=== PATIENT | female | born 1940 | race Hispanic/Latino ===

== ENCOUNTER 2017-01-22 12:51 | Observation (INO) | payer MEDICARE ==
[2017-01-22 12:51] VITALS: PULSE 71
--- NOTE | 2017-01-22 13:12 | ED PDOC ---
Arrival/HPI - General Chief Complaint: Syncope Time Seen by Provider: 01/22/17 12:54 Historian: Patient - History of Present Illness Narrative History of Present Illness (Text): 01/22/17 13:00 A 76 year old female with a past medial history of congestive heart failure, hypertension, and on Coumadin, presents to the Emergency department brought via EMS after a syncopal episode at her [employer]. The patient states that while she was standing she felt dizzy and had to sit down, and "blacked out" She notes that she recalls being surrounded by people at [employer]. The patient stats that she is asymptomatic at the moment. The patient denies headache, fevers, chills, chest pain, abdominal pain shortness of breath, nausea, vomiting, diarrhea, or any other complaint. PMD: Dr. Dejah Lieberman 01/22/17 17:00 Time/Duration: Prior to Arrival Symptom Onset: Sudden Symptom Course: Improving Activities at Onset: Rest, Light Context: Other ([employer]) Past Medical History - Provider Review Nursing Documentation Reviewed: Yes - Infectious Disease Hx of Infectious Diseases: None - Tetanus Immunization Tetanus Immunization: Unknown - Cardiac Hx Cardiac Disorders: Yes (CHF) Hx Cardiac Arrhythmia: Yes (AFIB) Hx Congestive Heart Failure: Yes Hx Internal Defibrillator: Yes (2 years ago) Hx Pacemaker: Yes (2 years ago) - Pulmonary Hx Respiratory Disorders: Yes Hx Pneumonia: Yes - Neurological Hx Neurological Disorder: No - HEENT Hx HEENT Disorder: No - Renal Hx Renal Disorder: No - Endocrine/Metabolic Hx Endocrine Disorders: No - Hematological/Oncological Hx Blood Disorders: No Hx Anemia: Yes (HAD BLOOD TRANFUSION) - Integumentary Hx Dermatological Disorder: No - Musculoskeletal/Rheumatological Hx Musculoskeletal Disorders: No Hx Falls: No - Gastrointestinal Hx Gastrointestinal Disorders: No - Genitourinary/Gynecological Hx Genitourinary Disorders: No - Psychiatric Hx Psychophysiologic Disorder: No Hx Depression: No Hx Emotional Abuse: No Hx Physical Abuse: No Hx Substance Use: No - Surgical History Hx Hysterectomy: Yes (AT AGE 38 YEARS AGO) Other/Comment: HYSTERECTOMY.PACEMAKER,DEFIBRILLATOR - Anesthesia Hx Anesthesia: Yes Hx Anesthesia Reactions: No Hx Malignant Hyperthermia: No - Suicidal Assessment Feels Threatened In Home Enviroment: No Family/Social History - Physician Review Nursing Documentation Reviewed: Yes Family/Social History: No Known Family HX Smoking Status: Never Smoked Hx Alcohol Use: No Hx Substance Use: No Hx Substance Use Treatment: No Allergies/Home Meds Allergies/Adverse Reactions: Allergies iodine Allergy (Verified 07/23/15 20:14) RASH levofloxacin Allergy (Verified 07/23/15 20:14) RASH sulfur [From Sulfur-8] Allergy (Verified 07/23/15 20:14) RASH Home Medications: Home Meds Medication Instructions Recorded Confirmed Digoxin 0.125 mg PO DAILY 04/02/12 01/22/17 Furosemide 40 mg PO QAM 04/02/12 01/22/17 Sotalol Hydrochloride [Sotalol] 80 mg PO BID 04/02/12 01/22/17 Furosemide [Lasix] 40 mg PO HS 02/03/14 01/22/17 Aspirin [Adult Low Dose Aspirin EC] 120 mg PO DAILY 07/23/15 01/22/17 Review of Systems - Physician Review All systems were reviewed & negative as marked: Yes - Review of Systems Constitutional: absent: Fevers, Night Sweats Respiratory: absent: SOB Cardiovascular: absent: Chest Pain Gastrointestinal: absent: Abdominal Pain, Diarrhea, Nausea, Vomiting Neurological: Dizziness, Other (Syncopal Episode). absent: Headache Physical Exam Vital Signs Temp Pulse Resp BP Pulse Ox 01/22/17 16:40 70 18 96/60 L 99 01/22/17 15:07 70 15 91/56 L 100 01/22/17 15:03 97.6 F 70 18 85/46 L 01/22/17 13:58 97.6 F 70 85/46 L 100 01/22/17 12:55 70 18 92/45 L 99 Appearance: Positive for: Well-Appearing, Non-Toxic, Comfortable Pain Distress: None Mental Status: Positive for: Alert and Oriented X 3 - Systems Exam Head: Present: Atraumatic, Normocephalic Pupils: Present: PERRL Extroacular Muscles: Present: EOMI Conjunctiva: Present: Normal Mouth: Present: Moist Mucous Membranes Neck: Present: Normal Range of Motion Respiratory/Chest: Present: Clear to Auscultation, Good Air Exchange. No: Respiratory Distress, Accessory Muscle Use Cardiovascular: Present: Regular Rate and Rhythm, Normal S1, S2. No: Murmurs Abdomen: Present: Normal Bowel Sounds. No: Tenderness, Distention, Peritoneal Signs Back: Present: Normal Inspection Upper Extremity: Present: Normal Inspection. No: Cyanosis, Edema Lower Extremity: Present: Normal Inspection. No: Edema Neurological: Present: GCS=15, CN II-XII Intact, Speech Normal Skin: Present: Warm, Dry, Normal Color. No: Rashes Psychiatric: Present: Alert, Oriented x 3, Normal Insight, Normal Concentration Medical Decision Making ED Course and Treatment: 01/22/17 13:15 Impression: A 76 year old female with an episode of dizziness and syncope prior to arrival. r/o cardiac metabolic intracrnial etiology Plan: -- EKG -- Head CT -- Chest X-ray -- Urinalysis -- Labs -- Reassess and disposition Prior Visits: Notes and results from previous visits were reviewed. Progress Notes: EKG: Ordered, reviewed, and independently interpreted the EKG. Rate : 70 BPM Rhythm : Paced CHEST X-RAY Dictator : Pablo Eller MD Report Date : 01/22/2017 13:51:50 IMPRESSION: No active disease. No significant interval change compared to the prior examination(s). CT HEAD WITHOUT CONTRAST Dictator : Pablo Eller MD Report Date : 01/22/2017 14:10:07 IMPRESSION: No acute intracranial abnormalities. No significant findings to account for the clinical presentation. 01/22/17 14:14 Pt remains well appearing, smiling in and in ER. Neuro intact. will admit for syncope, r/o cardiac etiology. Dr. Fletcher accepts. [place] syncope positive needs admission. - Lab Interpretations Lab Results: 01/22/17 13:25 01/22/17 13:25 Lab Results 01/22/17 13:25: Sodium 139, Potassium 4.5, Chloride 103, Carbon Dioxide 27, Anion Gap 14, BUN 24 H, Creatinine 1.2, Est GFR ( Amer) 53, Est GFR (Non- Af Amer) 44, Random Glucose 113 H, Calcium 9.6, Magnesium 2.4 H, Total Bilirubin 0.6, AST 34, ALT 40, Alkaline Phosphatase 100, Lactate Dehydrogenase 526, Total Creatine Kinase 83, Troponin I 0.02 D, Total Protein 7.2, Albumin 4.2, Globulin 3.0, Albumin/Globulin Ratio 1.4 01/22/17 13:25: PT 23.9 H, INR 2.21 H, APTT 31.7 H 01/22/17 13:25: WBC 6.0, RBC 4.86, Hgb 11.0 L, Hct 35.7 L, MCV 73.5 L, MCH 22.6 L, MCHC 30.8 L, RDW 23.5 H, Plt Count 274, MPV 8.6, Gran % 76.7 H, Lymph % (Auto ) 10.4 L, Addison % (Auto) 8.1 H, Eos % (Auto) 4.0, Baso % (Auto) 0.8, Gran # 4.56 , Lymph # 0.6 L, Addison # 0.5, Eos # 0.2, Baso # 0.05 01/22/17 13:25: Digoxin < 0.4 L I have reviewed the lab results: Yes - RAD Interpretation Radiology Orders: 01/22/17 13:02 HEAD W/O CONTRAST [CT] Stat CHEST PORTABLE [RAD] Stat - EKG Interpretation Interpreted by ED Physician: Yes Type: 12 lead EKG - Medication Orders Current Medication Orders: Amiodarone HCl (Cordarone) 200 mg PO DAILY [facility] Carvedilol (Coreg) 3.125 mg PO BID [facility] Home Med (Home Med) 1 unit PO DAILY [facility] Milrinone Lactate/Dextrose (Primacor 20mg/100ml D5w) 100 mls @ 5.797 mls/hr IV .[id number] PRN; Protocol; 0.3 MCG/KG/MIN PRN Reason: TITRATE PER MD ORDER Spironolactone (Aldactone) 12.5 mg PO BID ANNE - Scribe Statement The provider has reviewed the documentation as recorded by the [place] Provider Scribe Attestation: All medical record entries made by the Kelvinibkayla were at my direction and personally dictated by me. I have reviewed the chart and agree that the record accurately reflects my personal performance of the history, physical exam, medical decision making, and the department course for this patient. I have also personally directed, reviewed, and agree with the discharge instructions and disposition. Disposition/Present on Arrival - Present on Arrival Any Indicators Present on Arrival: No History of DVT/PE: No History of Uncontrolled Diabetes: No Urinary Catheter: No History of Decub. Ulcer: No History Surgical Site Infection Following: None - Disposition Have Diagnosis and Disposition been Completed?: Yes Diagnosis: Syncope Disposition: HOSPITALIZED Disposition Time: 17:12 Condition: FAIR
[2017-01-22 13:37] LABS: BASO # 0.05 K/mm3 (0.0-2.0); BASO % 0.8 % (0.0-3.0); EOS # 0.2 (0.0-0.7); GRAN # 4.56 (1.4-6.5); GRAN % 76.7 % (50.0-68.0); LYMPH # 0.6 (1.2-3.4); LYMPH % 10.4 % (22.0-35.0); MEAN CELL VOLUME 73.5 fl (80.0-105.0); MEAN CORPUSCULAR HEMOGLOBIN 22.6 pg (25.0-35.0); MEAN CORPUSCULAR HGB CONC 30.8 g/dl (31.0-37.0); MEAN PLATELET VOLUME 8.6 fl (7.0-11.0); MONO # 0.5 (0.1-0.6); MONO % 8.1 % (1.0-6.0); PLATELET COUNT 274 10^3/uL (120.0-450.0); RBC 4.86 10^6/uL (3.5-6.1); RED CELL DISTRIBUTION WIDTH 23.5 % (11.5-14.5)
[2017-01-22 13:39] LABS: ALB/GLOB RATIO 1.4 (1.1-1.8); ALBUMIN 4.2 g/dL (3.0-4.8); CALCIUM 9.6 mg/dL (8.4-10.5); MAGNESIUM 2.4 mg/dL (1.7-2.2)
[2017-01-22 13:40] LABS: INR 2.21 (0.93-1.08); PARTIAL THROMBOPLASTIN TIME 31.7 Seconds (23.7-30.8); PROTHROMBIN TIME 23.9 Seconds (9.9-11.8)
[2017-01-22 13:51] LABS: TROPONIN I 0.02 ng/mL
--- NOTE | 2017-01-22 13:53 | RAD ---
HISTORY: Syncope. COMPARISON: 05/25/2016. FINDINGS: LUNGS: No active pulmonary disease. PLEURA: No significant pleural effusion identified, no pneumothorax apparent. CARDIOVASCULAR: Cardiomegaly. No evidence of acute, significant cardiovascular disease. Position/ configuration of pacemaker Satisfactory. PICC line in satisfactory position unchanged compared to prior study. OSSEOUS STRUCTURES: No significant abnormalities. VISUALIZED UPPER ABDOMEN: Normal. OTHER FINDINGS: None. IMPRESSION: No active disease. No significant interval change compared to the prior examination(s).
--- NOTE | 2017-01-22 14:02 | CARD ---
APPROVED REPORT EKG Measurement Heart [id number] NH 128P [id number] <Conclusion> AV sequential or dual chamber electronic pacemaker
--- NOTE | 2017-01-22 14:12 | CT ---
PROCEDURE: CT HEAD WITHOUT CONTRAST. HISTORY: Syncope. COMPARISON: None available. TECHNIQUE: Axial computed tomography images were obtained through the head/brain without intravenous contrast. Radiation dose: Total exam DLP = 725.84 mGy-cm. This CT exam was performed using one or more of the following dose reduction techniques: Automated exposure control, adjustment of the mA and/or kV according to patient size, and/or use of iterative reconstruction technique. FINDINGS: HEMORRHAGE: No intracranial hemorrhage. BRAIN: No mass effect or edema. Cerebellar atrophy. VENTRICLES: Unremarkable. No hydrocephalus. CALVARIUM: Unremarkable. PARANASAL SINUSES: Chronic ethmoid air cell disease. MASTOID AIR CELLS: Unremarkable as visualized. No inflammatory changes. OTHER FINDINGS: None. IMPRESSION: No acute intracranial abnormalities. No significant findings to account for the clinical presentation.
[2017-01-22 15:08] VITALS: BMI 22.2
[2017-01-22 18:06] VITALS: RESP 20
[2017-01-22] MEDS: Milrinone 20mg/100ml D5W 100 ML IV PRN (18:21)
[2017-01-23 01:42] LABS: URINE BILIRUBIN NEGATIVE (NEGATIVE); URINE BLOOD TRACE-LYSED (NEGATIVE); URINE GLUCOSE (UA) NEGATIVE (NEGATIVE); URINE LEUKOCYTE ESTERASE TRACE Leu/uL (NEGATIVE); URINE NITRATE NEGATIVE (NEGATIVE); URINE PROTEIN NEGATIVE mg/dL (<30 mg/dL)
[2017-01-23 01:49] LABS: URINE APPEARANCE CLEAR (CLEAR); URINE COLOR YELLOW (YELLOW)
[2017-01-23 01:54] LABS: URINE EPITHELIAL CELLS 0 - 2 /hpf (0-5); URINE RBC 0 - 2 /hpf (0-2); URINE WBC 0 - 2 /hpf (0-6)
[2017-01-23 06:15] VITALS: O2SAT 93
[2017-01-23 06:41] LABS: HEMOGLOBIN 9.3 g/dL (12.0-16.0); MEAN CELL VOLUME 74.1 fl (80.0-105.0); MEAN CORPUSCULAR HEMOGLOBIN 22.5 pg (25.0-35.0); MEAN CORPUSCULAR HGB CONC 30.4 g/dl (31.0-37.0); MEAN PLATELET VOLUME 9.1 fl (7.0-11.0); RBC 4.13 10^6/uL (3.5-6.1); RED CELL DISTRIBUTION WIDTH 21.6 % (11.5-14.5); WHITE BLOOD COUNT 5.4 10^3/ul (4.5-11.0)
[2017-01-23 06:51] LABS: ALB/GLOB RATIO 1.3 (1.1-1.8); ALBUMIN 3.7 g/dL (3.0-4.8); ALT/SGPT 33 U/L (7-56); AST/SGOT 32 U/L (15-39); BLOOD UREA NITROGEN 18 mg/dL (7-21); CALCIUM 8.9 mg/dL (8.4-10.5); GFR AFRICAN-AMERICAN > 60; GFR NON-AFRICAN AMERICAN > 60
[2017-01-23] MEDS: Milrinone 20mg/100ml D5W 100 ML IV PRN (08:01)
[2017-01-23] MEDS ORDERED: ENTRESTO PO SCH (10:00)
[2017-01-23 12:03] VITALS: BP 109/60; PULSE 67; TEMP 98.2
[2017-01-23] MEDS ORDERED: Digoxin 125 mcg (0.125 mg) Tab PO SCH (14:00)
--- NOTE | 2017-01-23 15:34 | CON ---
DATE: 01/23/2017 INDICATIONS: Syncope. HISTORY OF PRESENT ILLNESS: This is a 76-year-old woman, well known to me, admitted after a syncopal episode which occurred in [facility] yesterday morning. She felt like her vision was dimming, she felt weak and then passed out briefly. She was observed to shake. She does not recall if got a shock or not, but surmises that she must have because she woke up very quickly. There was chest pain, shortness of breath, orthopnea, PND, vertigo, palpitation, edema, fever, chills, cough, sputum production, hemoptysis, abdominal pain, nausea, vomiting, diarrhea, constipation or melena. PAST MEDICAL HISTORY: Notable for dilated cardiomyopathy with class IV CHF on home milrinone infusion and recently Entresto . She is followed by Dr. Benson at the [facility]. She has a defibrillator. She has a history pulmonary hypertension, paroxysmal atrial fibrillation, hypertension, pneumonia and a hysterectomy. There is no history of rheumatic fever, myocardial infarction, angina, diabetes, stroke, TIA or gout. MEDICATIONS AT THE TIME OF ADMISSION: Include aspirin, digoxin, Lasix, warfarin, Coreg, amiodarone, and milrinone. Recently milrinone has been weaned slowly while she has been started on Entresto by Dr. Benson. She currently takes Entresto 49/51 one tablet b.i.d. ALLERGIES: SHE NOTES ALLERGIES TO IODINE, LEVOFLOXACIN AND SULFA MEDICATIONS. SOCIAL HISTORY: She lives at home. She is ambulatory. She is retired. She does not smoke cigarettes. She does not drink alcohol. FAMILY HISTORY: Noncontributory. REVIEW OF SYSTEMS: Ten point review of systems otherwise unremarkable except as noted above. PHYSICAL EXAMINATION GENERAL: She is a well-developed woman, lying in bed on telemetry in no acute distress. VITAL SIGNS: Notable for AV pacing at 72 to 81 beats per minute. She is afebrile. Blood pressure 100/59, respirations 20, O2 saturation 93% to 99% on room air. Orthostatic blood pressures are normal. HEENT: Reveals moderate neck vein distention. No thyromegaly. No carotid bruit. Mucous membranes moist. Conjunctivae pink. NECK: Supple. LUNGS: Hannah clear throughout. HEART: Revealed normal 1st and 2nd heart sounds. There is soft systolic murmur along the left sternal border. The PMI is displaced laterally. ABDOMEN: Soft. Bowel sounds are present. There is no mass, organomegaly, tenderness, rebound or guarding. No CVA tenderness. No palpable abdominal aortic aneurysm. EXTREMITIES: Revealed no cyanosis, clubbing or edema. NEUROLOGIC: She is awake, alert and oriented. SKIN: Warm and dry. No rash or cellulitis. PSYCHIATRIC: Normal as to mood and affect. LABORATORY DATA AND IMAGING: A portable chest x-ray revealed no active disease. EKG reveals AV pacing. A CT scan of the head reveals no acute intracranial abnormality. White count normal. Platelet count normal. Hemoglobin 11, repeat 9.3. Hematocrit 35.7, repeat 30.6. PT 23.9. INR 2.21. Electrolytes, BUN, creatinine, blood sugar are unremarkable. Magnesium 2.4. LFTs unremarkable. CK 83, troponin 0.02. Urinalysis is noted, digoxin level less than 0.4. IMPRESSION: Lydia Cox is a 76-year-old woman with known dilated cardiomyopathy, on home milrinone and p.o. Entresto with known paroxysmal atrial fibrillation and an ICD in place, who experienced syncope while at [facility]. This could have been an of episode of VT or VF terminated by the defibrillator. We will interrogate the defibrillator later today to ascertain the rhythm at the time of her syncopal episode yesterday. In the meantime, she has been on telemetry, has had no further arrhythmias and she feels well without recurrent syncope or dizziness or palpitations. PLAN: Based on the interrogation of defibrillator, we may increase her amiodarone to 200 mg b.i.d. In the meantime, we will continue her usual medications including aspirin, spironolactone, amiodarone, Coreg, warfarin, digoxin, Lasix, and milrinone. Since Entresto is not our formulary, she can take her home medications at 49/51 mg one tablet b.i.d. Once the defibrillator is interrogated, we will plan for discharge probably later today. Outpatient followup in my office as well as with Dr. Benson and Dr. Koo (). She will report any further shocks or syncope to us promptly. Carter Pierce MD ENEDIAN
--- NOTE | 2017-01-23 20:12 | HP ---
CHIEF COMPLAINT: Syncope. HISTORY OF PRESENT ILLNESS: A [id number] female with history of dilated cardiomyopathy with very low ejection fraction of 15%. Currently on chronic medications for congestive heart failure, which is Entresto and milrinone . The patient was in her good state of health. She went to synagogue in the morning when she felt lightheaded and eventually became diaphoretic and passed out. The patient was brought to the emergency room. She denied any chest pain, shortness of breath, fever, headache, or blurry vision. PAST MEDICAL HISTORY: Dilated cardiomyopathy with congestive heart failure, ejection fraction of 15% chronically on milrinone, Entresto. SURGICAL HISTORY: Significant for hysterectomy and pacemaker with defibrillator insertion in 2010. CURRENT MEDICATIONS: Spironolactone, aspirin, furosemide, warfarin, carvedilol, amiodarone, Entresto and milrinone. ALLERGIES: THE PATIENT HAS KNOWN ALLERGIES TO HEPARIN, IODINE, LEVOFLOXACIN AND SULFA. FAMILY HISTORY: Significant for heart disease on father side. The patient has 2 children who are heathy. SOCIAL HISTORY: The patient denies any smoking or alcohol use. The patient denies any drug use. She is a . The patient lives with her daughter. The patient is ambulatory and independent with activities of daily living. REVIEW OF SYSTEMS: The patent denies any fever, loss of appetite, loss of weight. She denies any sore throat, nasal congestion. She denies any dysphagia. Denies any cough or shortness of breath. She denies any heart palpitation, chest pain. She denies any leg edema. The patient denies any abdominal symptoms like nausea, vomiting, diarrhea, constipation. She denies any dysuria, hematuria or frequency. Denies any neurological symptoms as headache, blurred vision, numbness, weakness. The patient denies any depression symptoms or anxiety, but has chronic insomnia. PHYSICAL EXAMINATION: GENERAL: She is comfortably bed alert, awake, and oriented. VITAL SIGNS: Stable, temperature this morning 97.9 and pulse 72 regular, blood pressure 112/63, respiratory rate 20 and O2 saturation since yesterday range of between 99% to 95%. HEENT: Head is normocephalic and atraumatic. Oral mucosa is moist. NECK: Supple. No neck mass, no JVD. LUNGS: Crackles in the base. No rales, or rhonchi. HEART: With regular rate, rate of 70 per minute. ABDOMEN: Soft, nontender, nondistended. No masses palpable. Bowel sounds positive. EXTREMITIES: No edema with full range of motion. NEUROLOGICAL EXAM: Normal, no sensory motor deficits. DIAGNOSTIC TESTS: CBC on admission showed normal. WBC 6, hemoglobin 11, hematocrit 35.7. Repeated CBC this morning showed stable WBC 5.4, hemoglobin 9.3, hematocrit 30.6, platelet count 237. Chemistry was normal with random glucose 115, magnesium 2.4, albumin 124, creatinine 1.2. This morning BUN 18, creatinine 0.9. Urinalysis showed trace of blood. Her chest x-ray showed no active disease. EKG showed heart rate of 70 with electronic pacemaker rhythm. Head CT showed no intracerebral bleeding. ASSESSMENT: 1. A 76-year-old female with history of dilated cardiomyopathy and CHF admitted for a syncopal episode most probably vasovagal reflex. 2. Chronic dilated cardiomyopathy, hemodynamically stable with no acute CHF. 3. Mild anemia chronic with no signs of active bleeding. PLAN OF TREATMENT: The patient was admitted to telemetry for monitoring. Crystal Slicer was called in consult. The patient was restarted on chronic medications and the patient will be monitored, her pacemaker will be checked. Dejah Meza MD MTDD
== END 2017-01-23 14:27 | disposition home or self-care (01) ==
LOC: ED 12:51 → ERH 14:12 → INTOOBSV 14:12 → ERH 14:51 → 2RSO 17:28
PROVIDERS: ADMIT Family Medicine; ATTEND Family Medicine
DX: I47.2 Ventricular tachycardia (principal); I49.01 Ventricular fibrillation; I11.0 Hypertensive heart disease with heart failure; I50.9 Heart failure, unspecified; I42.0 Dilated cardiomyopathy; I48.0 Paroxysmal atrial fibrillation; I27.2 Other secondary pulmonary hypertension; D64.9 Anemia, unspecified; K59.00 Constipation, unspecified; Z79.82 Long term (current) use of aspirin; Z87.01 Personal history of pneumonia (recurrent); Z90.710 Acquired absence of both cervix and uterus; Z95.0 Presence of cardiac pacemaker; Z95.810 Presence of automatic (implantable) cardiac defibrillator; Z88.1 Allergy status to other antibiotic agents; Z88.2 Allergy status to sulfonamides; Z88.8 Allergy status to other drugs, medicaments and biological substances; R55 Syncope and collapse
CPT/HCPCS: 36415; 70450; 71010; 80053; 80162; 81001; 82550; 83615; 83735; 84484; 85025; 85027; 85610; 85730; 93005; 99285; G0378; J2260

== ENCOUNTER 2017-06-10 20:07 | Observation (INO) | payer MEDICARE ==
[2017-06-10 20:07] VITALS: PULSE 71
--- NOTE | 2017-06-10 20:45 | ED PDOC ---
Arrival/HPI - General Chief Complaint: Shortness Of Breath Time Seen by Provider: 06/10/17 20:09 Historian: Patient - History of Present Illness Narrative History of Present Illness (Text): 06/10/17 20:30 A 76 year old female, whose past medical history includes CHF, dilated cardiomyopathy, pulmonary hypertension, paroxysmal fibrillation, generalized hypertension, and a hysterectomy, presents to the emergency department for shortness of breath and orthopnea PND, which began a couple of days ago. The patient denies any fever, chest pain, cough, chills, or any other complaints at this time. Time/Duration: < week Symptom Onset: Sudden Symptom Course: Unchanged Activities at Onset: Light Context: Home Past Medical History - Provider Review Nursing Documentation Reviewed: Yes - Infectious Disease Hx of Infectious Diseases: None - Tetanus Immunization Tetanus Immunization: Unknown - Cardiac Hx Cardiac Disorders: Yes (CHF) Hx Cardiac Arrhythmia: Yes (AFIB) Hx Congestive Heart Failure: Yes Hx Internal Defibrillator: Yes (2 years ago) Hx Pacemaker: Yes (2 years ago) Other/Comment: Primacor drip - Pulmonary Hx Respiratory Disorders: Yes Hx Pneumonia: Yes - Neurological Hx Neurological Disorder: No - HEENT Hx HEENT Disorder: No - Renal Hx Renal Disorder: No - Endocrine/Metabolic Hx Endocrine Disorders: No - Hematological/Oncological Hx Blood Disorders: No Hx Anemia: Yes (HAD BLOOD TRANFUSION) - Integumentary Hx Dermatological Disorder: No - Musculoskeletal/Rheumatological Hx Musculoskeletal Disorders: No Hx Falls: No - Gastrointestinal Hx Gastrointestinal Disorders: No - Genitourinary/Gynecological Hx Genitourinary Disorders: No - Psychiatric Hx Psychophysiologic Disorder: No Hx Depression: No Hx Emotional Abuse: No Hx Physical Abuse: No Hx Substance Use: No - Surgical History Hx Hysterectomy: Yes (AT AGE 38 YEARS AGO) Other/Comment: HYSTERECTOMY.PACEMAKER,DEFIBRILLATOR - Anesthesia Hx Anesthesia: Yes Hx Anesthesia Reactions: No Hx Malignant Hyperthermia: No - Suicidal Assessment Feels Threatened In Home Enviroment: No Family/Social History - Physician Review Nursing Documentation Reviewed: Yes Family/Social History: No Known Family HX Smoking Status: Never Smoked Hx Alcohol Use: No Hx Substance Use: No Hx Substance Use Treatment: No Allergies/Home Meds Allergies/Adverse Reactions: Allergies heparin Allergy (Verified 06/10/17 20:31) SWELLING iodine Allergy (Verified 06/10/17 20:31) RASH levofloxacin Allergy (Verified 06/10/17 20:31) RASH sulfur [From Sulfur-8] Allergy (Verified 06/10/17 20:31) RASH Home Medications: Home Meds Medication Instructions Recorded Confirmed Digoxin 0.125 mg PO DAILY 04/02/12 01/22/17 Furosemide 40 mg PO QAM 04/02/12 01/22/17 Review of Systems - Physician Review All systems were reviewed & negative as marked: Yes - Review of Systems Constitutional: absent: Fevers, Other (chills ) Respiratory: SOB. absent: Cough Cardiovascular: absent: Chest Pain Physical Exam Vital Signs Reviewed: Yes Vital Signs Temp Pulse Resp BP Pulse Ox 06/10/17 22:32 71 18 100/60 96 06/10/17 20:59 98.0 F 70 18 99/47 L 96 06/10/17 20:40 18 96 06/10/17 20:21 89 24 99/47 L 94 L Temperature: Afebrile Blood Pressure: Hypotensive Pulse: Regular Respiratory Rate: Apneic Appearance: Positive for: Well-Appearing, Non-Toxic, Comfortable Pain Distress: None Mental Status: Positive for: Alert and Oriented X 3 - Systems Exam Head: Present: Atraumatic, Normocephalic Pupils: Present: PERRL Extroacular Muscles: Present: EOMI Conjunctiva: Present: Normal Mouth: Present: Moist Mucous Membranes Neck: Present: Normal Range of Motion Respiratory/Chest: Present: Good Air Exchange, Rhonchi (few scattered rhonchi bilaterally ). No: Respiratory Distress, Accessory Muscle Use Cardiovascular: Present: Regular Rate and Rhythm, Normal S1, S2. No: Murmurs Abdomen: Present: Normal Bowel Sounds. No: Tenderness, Distention, Peritoneal Signs Back: Present: Normal Inspection Upper Extremity: Present: Normal Inspection. No: Cyanosis, Edema Lower Extremity: Present: Normal Inspection. No: Edema Neurological: Present: GCS=15, CN II-XII Intact, Speech Normal Skin: Present: Warm, Dry, Normal Color. No: Rashes Psychiatric: Present: Alert, Oriented x 3, Normal Insight, Normal Concentration Medical Decision Making ED Course and Treatment: 06/10/17 20:44 Impression: A 76 year old female with shortness of breath. Plan: -- EKG -- Chest X-ray -- Labs -- O2 Nasal Cannula -- Reassess and disposition Progress Notes: 06/10/17 20:45 EK% Paced Rhythm 06/10/17 21:40 Chest X-ray reviewed, shows cardiomegaly and increased interstitial markings. 06/10/17 23:[address] Fletcher, who is aware and agrees with plan. Accepts pt in to her service. Pt will go to Telemetry observation for CHF. - Lab Interpretations Lab Results: 06/10/17 20:48 06/10/17 20:48 Lab Results 06/10/17 20:48: Digoxin < 0.4 L 06/10/17 20:48: PT 39.1 H, INR 3.50 H, APTT 33.4 06/10/17 20:48: Sodium 136, Potassium 4.4, Chloride 103, Carbon Dioxide 22, Anion Gap 15, BUN 30 H, Creatinine 1.3 H, Est GFR ( Amer) 48, Est GFR ( Non-Af Amer) 40, Random Glucose 108, Calcium 9.2, Total Bilirubin 0.9, AST 36, ALT 35, Alkaline Phosphatase 94, Lactate Dehydrogenase 662, Total Creatine Kinase 112, Troponin I 0.04 D, NT-Pro-B Natriuret Pep 81790 H, Total Protein 7.0, Albumin 4.0, Globulin 3.0, Albumin/Globulin Ratio 1.3 06/10/17 20:48: WBC 6.0, RBC 3.92, Hgb 8.4 L, Hct 28.4 L, MCV 72.4 L, MCH 21.4 L , MCHC 29.6 L, RDW 17.9 H, Plt Count 332, MPV 8.9, Gran % 83.9 H, Lymph % (Auto ) 7.6 L, [place] % (Auto) 6.3 H, Eos % (Auto) 1.5, Baso % (Auto) 0.7, Gran # 5.06, Lymph # 0.5 L, [place] # 0.4, Eos # 0.1, Baso # 0.04 I have reviewed the lab results: Yes - RAD Interpretation Radiology Orders: 06/10/17 20:34 CHEST PORTABLE [RAD] Stat Scaler Packer: ED Physician - EKG Interpretation Interpreted by ED Physician: Yes Type: 12 lead EKG - Medication Orders Current Medication Orders: Discontinued Medications Albuterol/Ipratropium (Duoneb 3 Mg/0.5 Mg (3 Ml) Ud) 3 ml IH ONCE STA Stop: 06/10/17 20:56 Last Admin: 06/10/17 20:59 Dose: 3 ml Furosemide (Lasix) 20 mg IVP ONCE ONE Stop: 06/10/17 23:02 - Scribe Statement The provider has reviewed the documentation as recorded by the Scribe Hialey Chapin Provider Scribe Attestation: All medical record entries made by the Scribe were at my direction and personally dictated by me. I have reviewed the chart and agree that the record accurately reflects my personal performance of the history, physical exam, medical decision making, and the department course for this patient. I have also personally directed, reviewed, and agree with the discharge instructions and disposition. Disposition/Present on Arrival - Present on Arrival Any Indicators Present on Arrival: No History of DVT/PE: No History of Uncontrolled Diabetes: No Urinary Catheter: No History of Decub. Ulcer: No History Surgical Site Infection Following: None - Disposition Have Diagnosis and Disposition been Completed?: Yes Diagnosis: Congestive heart failure Disposition: HOSPITALIZED Disposition Time: 23:02 Patient Plan: Observation Patient Problems: Current Active Problems Problem Status Onset Congestive heart failure Acute Condition: STABLE Discharge Instructions (ExitCare): Heart Failure (ED) Referrals: Dejah Meza MD [Primary Care Provider] - Follow up with primary Forms: [place] (Portuguese)
[2017-06-10] MEDS ORDERED: Albuterol-Ipratrop 3 mg / 0.5 (3 ml) UD IH STA (20:55)
[2017-06-10 21:03] LABS: BASO # 0.04 K/mm3 (0.0-2.0); BASO % 0.7 % (0.0-3.0); EOS # 0.1 (0.0-0.7); EOS % 1.5 % (1.5-5.0); GRAN # 5.06 (1.4-6.5); GRAN % 83.9 % (50.0-68.0); HEMOGLOBIN 8.4 g/dL (12.0-16.0); LYMPH # 0.5 (1.2-3.4); LYMPH % 7.6 % (22.0-35.0); MEAN CELL VOLUME 72.4 fl (80.0-105.0); MEAN CORPUSCULAR HEMOGLOBIN 21.4 pg (25.0-35.0); MEAN CORPUSCULAR HGB CONC 29.6 g/dl (31.0-37.0); MEAN PLATELET VOLUME 8.9 fl (7.0-11.0); MONO # 0.4 (0.1-0.6); MONO % 6.3 % (1.0-6.0); RBC 3.92 10^6/uL (3.5-6.1); RED CELL DISTRIBUTION WIDTH 17.9 % (11.5-14.5)
[2017-06-10 21:17] LABS: INR 3.5 (0.93-1.08); PARTIAL THROMBOPLASTIN TIME 33.4 Seconds (25.1-36.5); PROTHROMBIN TIME 39.1 SECONDS (9.4-12.5)
[2017-06-10 21:34] LABS: TROPONIN I 0.04 ng/mL
[2017-06-10 22:18] LABS: ALB/GLOB RATIO 1.3 (1.1-1.8); CALCIUM 9.2 mg/dL (8.4-10.5)
[2017-06-11] MEDS: Milrinone 20mg/100ml D5W 100 ML IV SCH ×2 (00:53→07:39)
[2017-06-11 02:38] VITALS: BMI 23.0
[2017-06-11 05:53] VITALS: O2SAT 97
[2017-06-11 07:33] LABS: HEMOGLOBIN 8.5 g/dL (12.0-16.0); MEAN CELL VOLUME 72.3 fl (80.0-105.0); MEAN CORPUSCULAR HEMOGLOBIN 21.6 pg (25.0-35.0); MEAN CORPUSCULAR HGB CONC 29.9 g/dl (31.0-37.0); MEAN PLATELET VOLUME 8.9 fl (7.0-11.0); RBC 3.93 10^6/uL (3.5-6.1); RED CELL DISTRIBUTION WIDTH 17.8 % (11.5-14.5); WHITE BLOOD COUNT 6.1 10^3/ul (4.5-11.0)
[2017-06-11 07:47] LABS: ALB/GLOB RATIO 1.4 (1.1-1.8); ALBUMIN 4.1 g/dL (3.0-4.8); CALCIUM 9.6 mg/dL (8.4-10.5)
[2017-06-11] MEDS ORDERED: Metoprolol Succinate 25 mg XL Tab PO SCH (08:00)
[2017-06-11 08:09] LABS: INR 3.34 (0.93-1.08); PROTHROMBIN TIME 37.6 SECONDS (9.4-12.5)
--- NOTE | 2017-06-11 15:18 | RAD ---
HISTORY: sob COMPARISON: Comparison chest 05/17/2017 FINDINGS: No change right-sided PICC line with tip in the SVC. LUNGS: Increased vascularity suggesting mild chronic compensated pulmonary edema/CHF. Bibasilar opacities could represent developing alveolar-type infiltrates. Possible small left-sided effusion and questionable tiny right effusion. PLEURA: As above. No apparent pneumothorax apparent. CARDIOVASCULAR: Marked cardiomegaly. No change multi lead pacemaker -defibrillator. . OSSEOUS STRUCTURES: No significant abnormalities. VISUALIZED UPPER ABDOMEN: Normal. OTHER FINDINGS: None. IMPRESSION: Increased vascularity suggesting mild chronic compensated pulmonary edema/CHF. Bibasilar opacities could represent developing alveolar-type infiltrates. Possible small left-sided effusion and questionable tiny right effusion. Marked cardiomegaly.
--- NOTE | 2017-06-11 15:40 | CARD ---
APPROVED REPORT EKG Measurement Heart [id number] <Conclusion> Atrial sensed, ventricular paced rhythm
[2017-06-11 17:55] VITALS: RESP 20
[2017-06-11 19:27] VITALS: BP 111/69; PULSE 79; TEMP 99
--- NOTE | 2017-06-12 00:39 | CON ---
DATE: 06/11/2017 REQUESTING PHYSICIAN: Dr. Fletcher. REASON FOR CONSULTATION: Dyspnea. HISTORY OF PRESENT ILLNESS: This is a 76-year-old woman well known to us with a history of severe dilated cardiomyopathy, maintained on home milrinone infusion, who was admitted with worsening dyspnea, weight gain and edema. She is followed by the Heart Failure Team at [facility] and had recent blood work performed. She was noted to have an elevated BNP and in association with her symptoms was advised admission. She is treated with IV Lasix in emergency room and feel significantly better. Of note, her hemoglobin on presentation was 8.4, which is down several grams compared to blood work of 01/2017. She denies any lightheadedness or syncope. She has had no defibrillator firings. She has undergone prior cardiac catheterization and was found to have normal coronary arteries with an ejection fraction of 20%. She has had paroxysmal atrial fibrillation prior to defibrillator implant. She claims compliance with the medications as well as the sodium restriction at home. PAST MEDICAL HISTORY: Notable for a prior hysterectomy. MEDICATIONS AT HOME: Include intervenous milrinone, Aldactone, amiodarone, Coumadin, Lasix 40 mg in the morning and 20 mg in the evening, Protonix and Toprol-XL 25 mg daily. ALLERGIES: SHE HAS HAD REACTION TO IODINE IN THE PAST WELL HEPARIN, SULFA AND LEVAQUIN. SOCIAL HISTORY: She does not smoke or drink. FAMILY HISTORY: Both parents are from age-related illness. REVIEW OF SYSTEMS: A 10-point review of systems is otherwise unremarkable. PHYSICAL EXAMINATION: GENERAL: She is a well-developed appearing middle-aged woman. VITAL SIGNS: Her blood pressure is 106/68 with a pulse of 70 with dual-chamber pacing noted, her respirations are 16, she is afebrile. HEENT: Normocephalic and atraumatic. NECK: Supple. No JVD noted. CHEST: Bibasilar rales heard. HEART: PMI displaced laterally with soft tones noted and systolic murmur is present in lower left sternal border as well to the apex. ABDOMEN: Soft and nontender. Normoactive bowel sounds. EXTREMITIES: Trace ankle edema. SKIN: Warm and dry. PSYCHIATRIC: Normal mood and affect. NEUROLOGIC: Alert and oriented x3. No gross motor or sensory is appreciable. DIAGNOSTIC DATA: White count is 6.0, hemoglobin and hematocrit are 8.4 and 28.4 with platelet count of 332,000, MCV is 72.4. INR is 3.5. Potassium 4.4, BUN and creatinine are 30 and 1.3. BNP is 10,100. Troponin is 0.04. Digoxin level is not detected. IMPRESSION: 1. Decompensated congestive heart failure, acute on chronic, primarily systolic. 2. Severe left ventricular systolic dysfunction with Class III symptoms. 3. Progressive anemia, microcytic, etiology uncertain. 4. Status post implantable cardioverter-defibrillator implant. 5. Rest of problems as noted. RECOMMENDATIONS: Her oral medications will be resumed at this time. Stool guaiac will be checked. Consideration may need to be given to transfusion given her symptoms, to relieve anemia and severe underlying heart failure. Thank you for this consultation. We will be happy to follow along through her hospital course and make further recommendations as appropriate. Gene Pichardo MD
--- NOTE | 2017-06-13 09:23 | HP ---
CHIEF COMPLAINT: Progressive shortness of breath. HISTORY OF PRESENT ILLNESS: A 76-year-old female with history of dilated cardiomyopathy and stage IV congestive heart failure who is chronically on milrinone IV at home, presented to Emergency Room with complaints of progressive shortness of breath and increase of feet edema over the last 2 days. The patient was on a increased dose of Lasix since Monday after she had phone calls from nurse from [facility] that her BNP was elevated; however, the increased dose of Lasix did not help and she decided to come to Emergency Room. She denied any chest pain, dizziness, syncope, and heart palpitation. PAST MEDICAL HISTORY: History of dilated cardiomyopathy, stage IV congestive heart failure; history of pulmonary hypertension, status post pacemaker and defibrillator insertion; history of pneumonia.Chronic iron deficiency anemia. PAST SURGICAL HISTORY: Significant for hysterectomy, pacemaker with defibrillator insertion in 2010. PRESENT MEDICATIONS: Spirolactone, Coumadin, furosemide, amiodarone, carvedilol, Entresto, milrinone. ALLERGIES: THE PATIENT HAS KNOWN ALLERGIES TO HEPARIN, IODINE, LEVAQUIN, AND SULFA. FAMILY HISTORY: Significant for heart disease in father side. The patient has 2 children which are healthy. SOCIAL HISTORY: The patient denies any smoking, alcohol or drug use. The patient is a . She lives with her daughter. The patient is ambulatory and independent of activities of daily living. REVIEW OF SYSTEMS: She denies any fever, loss of appetite, weight loss. Denies any sore throat, nasal congestion, dysphagia. She denies any cough, but complaints of exertional shortness of breath. She denies any heart palpitation or chest pain. She complains of intermittent leg edema. Denies any abdominal pain, nausea, vomiting, diarrhea, or constipation. She denies any melena or hematemesis. She denies any dysuria, hematuria or flank pain. She denies any neurological symptoms as dizziness, blurry vision, weakness, or paraesthesia. She denies any joint pains, swelling, or erythema. PHYSICAL EXAMINATION: VITAL SIGNS: Stable. Temperature 97.6, heart rate 88 regular, blood pressure 105/68, respiratory rate 18, and oxygen saturation 97% on room air. GENERAL: She is pale, but in no acute form of distress. HEENT: Head is normocephalic, atraumatic. Eyes with pupils reactive to light. Conjunctivae clear. No jaundice. Oral mucosa is moist. Throat with no lesions. NECK: Supple. No neck masses. No JVD. No lymphadenopathy. HEART: With regular rhythm, rate of 88 per minute. LUNGS: With decreased breath sounds and few crackles in the right base. ABDOMEN: Soft, nontender, nondistended. EXTREMITIES: With traces of edema of both feet. No calf tenderness. There is small varicose is noted. DIAGNOSTIC TESTS: Her pertinent findings significant for WBC 6, hemoglobin 8.4 in emergency room with hematocrit 28.4 and platelet count 332. Repeated hemoglobin this morning 8.5. Chemistry with normal electrolyte, but BUN 30, creatinine 1.3. Her BNP high 10,000. Her troponin level was 0.04. Digoxin level was low 0.4. Her INR was significant for elevated INR 3.5. EKG showed electronic ventricular pacemaker with heart rate of 72, wide QRS is consistent with ventricular pacemaker. Chest x-ray show increase vascular congestion, no localize infiltrations. ASSESSMENT: 1. A 76-year-old female with history of dilated cardiomyopathy, admitted for increase of dyspnea consistent with decompensated chronic congestive heart failure. 2. Anemia iron deficiency with no active bleeding. 3. Mild renal insufficiency probably prerenal. PLAN OF TREATMENT: The patient was admitted to telemetry on observation. Cardiology was called and consult. She was treated with IV Lasix in Emergency Room. The patient had repeated hemoglobin and INR, which were stable with no signs of active bleeding; however, because of history of CHF and significant shortness of breath. I feel that the patient would benefit from blood transfusion to improve her hemoglobin level. I will order Type and Cross with 1 unit of blood. The patient would maintained on Lasix, milrinone, metoprolol, amiodarone, and spironolactone. Dejah Meza MD MTDD
--- NOTE | 2017-06-16 06:23 | DS ---
HOSPITAL COURSE: The patient is a 76-year-old female with history of dilated cardiomyopathy, admitted for decompensated congestive heart failure with progressive worsening dyspnea. She was treated with IV Lasix in the emergency room. She has history of chronic stable iron-deficiency anemia, but found to have hemoglobin dropped at 8.4 in the emergency room. The patient was transfused during the hospitalization with 1 unit of blood. PHYSICAL EXAMINATION: VITAL SIGNS: Vitals were stable during evaluation. She was afebrile, temperature 98.4, her blood pressure was 98/62, respiratory rate 18, and pulse 90 and regular. GENERAL: She was comfortable, pale, but in no acute form of distress. HEENT: Head, normocephalic and atraumatic. Eyes with pupils reactive to light. Oral mucosa was moist. NECK: Supple. LUNGS: With decreased breath sounds and crackles in the right lower lung. HEART: Regular rhythm and rate. ABDOMEN: Soft, nontender, and nondistended. EXTREMITIES: No edema. She had one unit of packed red blood cells transfused with no complications. ASSESSMENT: 1. Decompensated congestive heart failure stage 4. 2. Dilated cardiomyopathy. 3. Iron-deficiency anemia. 4. History of prerenal insufficiency, improved during hospitalization. PLAN OF TREATMENT: The patient will be discharged home in stable condition. Continue on low-sodium heart-healthy diet. The patient will be maintained on her chronic medication, milrinone IV infusion, Entresto, spironolactone, Coumadin, and Lasix. The patient was advised to hold Coumadin for one extra day and then restart on lower dose 5 mg daily. She will have her PT and INR checked next week. The patient was advised to follow up with her primary care doctor in next week. We will repeat CBC in the office and we will review her GI workup with colonoscopy and endoscopy, which she had in 2017 in [facility]. Dejah Meza MD
== END 2017-06-11 19:46 | disposition home or self-care (01) ==
LOC: ED 20:07 → ERH 23:03 → 2RSO 06-11 01:41
PROVIDERS: ADMIT Family Medicine; ATTEND Family Medicine
DX: I11.0 Hypertensive heart disease with heart failure (principal); I50.23 Acute on chronic systolic (congestive) heart failure; I42.0 Dilated cardiomyopathy; I48.0 Paroxysmal atrial fibrillation; I27.20 Pulmonary hypertension, unspecified; D50.9 Iron deficiency anemia, unspecified; N28.9 Disorder of kidney and ureter, unspecified; Z87.01 Personal history of pneumonia (recurrent); Z95.810 Presence of automatic (implantable) cardiac defibrillator; Z90.710 Acquired absence of both cervix and uterus
CPT/HCPCS: 36415; 36430; 71010; 80053; 80162; 82550; 83615; 83880; 84484; 85025; 85027; 85044; 85610; 85730; 86850; 86900; 86920; 93005; 94640; 96374; 96375; 96376; 99285; G0378; J1940; J2260; P9016

== ENCOUNTER 2017-11-16 12:15 | Observation (INO) | payer MEDICARE ==
[2017-11-16 12:15] VITALS: PULSE 71
--- NOTE | 2017-11-16 13:15 | ED PDOC ---
Arrival/HPI - General Chief Complaint: Shortness Of Breath Time Seen by Provider: 11/16/17 12:54 Historian: Patient - History of Present Illness Narrative History of Present Illness (Text): 11/16/17 13:11 77 year old female, whose past medical history includes CHF on a milirone drip, and a pacemaker to the left chest wall, who presents to the emergency department complaining of worsening shortness of breath x 1 week. Patient notes increased weight and is worried she's retaining fluid. Patient had a URI 1 week ago and was given Amoxicillin with, relief of symptoms. Patient denies any fever , chills, chest pain, nausea, vomiting, diarrhea, urinary symptoms, back pain, neck pain, headache, dizziness, or any other complaints. PMD: Dr. Fletcher Pacs Specialist: Dr. Pierce Time/Duration: 1 week Symptom Onset: Gradual Symptom Course: Worsening Activities at Onset: Light Context: Home Past Medical History - Provider Review Nursing Documentation Reviewed: Yes - Infectious Disease Hx of Infectious Diseases: None - Tetanus Immunization Tetanus Immunization: Unknown - Cardiac Hx Cardiac Disorders: Yes Hx Angina: Yes Hx Cardiac Arrhythmia: Yes (afib) Hx Congestive Heart Failure: Yes Hx Hypertension: Yes Hx Internal Defibrillator: Yes (2 yrs ago) Hx Pacemaker: Yes - Pulmonary Hx Respiratory Disorders: Yes Hx Pneumonia: Yes - Neurological Hx Neurological Disorder: No - HEENT Hx HEENT Disorder: No - Renal Hx Renal Disorder: No - Endocrine/Metabolic Hx Endocrine Disorders: No - Hematological/Oncological Hx Blood Disorders: Yes Hx Anemia: Yes - Integumentary Hx Dermatological Disorder: No - Musculoskeletal/Rheumatological Hx Musculoskeletal Disorders: No Hx Falls: No - Gastrointestinal Hx Gastrointestinal Disorders: No - Genitourinary/Gynecological Hx Genitourinary Disorders: No - Psychiatric Hx Psychophysiologic Disorder: No Hx Substance Use: No - Surgical History Hx Cardiac Catheterization: Yes Hx Cholecystectomy: Yes - Anesthesia Hx Anesthesia: Yes Hx Anesthesia Reactions: No Hx Malignant Hyperthermia: No - Suicidal Assessment Feels Threatened In Home Enviroment: No Family/Social History - Physician Review Nursing Documentation Reviewed: Yes Family/Social History: Unknown Family HX Smoking Status: Never Smoked Hx Alcohol Use: No Hx Substance Use: No Hx Substance Use Treatment: No Allergies/Home Meds Allergies/Adverse Reactions: Allergies heparin Allergy (Verified 11/16/17 12:25) SWELLING iodine Allergy (Verified 11/16/17 12:25) RASH levofloxacin Allergy (Verified 11/16/17 12:25) RASH sulfur [From Sulfur-8] Allergy (Verified 11/16/17 12:25) RASH Home Medications: Home Meds Medication Instructions Recorded Confirmed Furosemide 40 mg PO QAM 04/02/12 06/10/17 Metoprolol Succinate [Toprol XL] 25 mg PO ONCE 06/10/17 06/10/17 Pantoprazole [Protonix EC Tab] 40 mg PO ONCE 06/10/17 06/10/17 Review of Systems - Physician Review All systems were reviewed & negative as marked: Yes - Review of Systems Constitutional: Normal Eyes: Normal ENT: Normal Respiratory: SOB, Cough (non-productive) Cardiovascular: Normal, Edema. absent: Chest Pain Gastrointestinal: Normal. absent: Abdominal Pain, Diarrhea, Nausea, Vomiting Genitourinary Female: Normal. absent: Dysuria, Frequency, Hematuria Musculoskeletal: Normal Skin: Normal. absent: Rash Neurological: Normal. absent: Headache, Dizziness Endocrine: Normal Hemo/Lymphatic: Normal Psychiatric: Normal Physical Exam Vital Signs Temp Pulse Resp BP Pulse Ox 11/16/17 14:36 97.7 F 73 18 96/66 L 95 11/16/17 13:28 18 Temperature: Afebrile Blood Pressure: Normal Pulse: Regular Respiratory Rate: Normal Appearance: Positive for: Well-Appearing, Non-Toxic, Comfortable Pain Distress: None Mental Status: Positive for: Alert and Oriented X 3 - Systems Exam Head: Present: Atraumatic, Normocephalic Pupils: Present: PERRL Extroacular Muscles: Present: EOMI Conjunctiva: Present: Normal Mouth: Present: Moist Mucous Membranes Neck: Present: Normal Range of Motion Respiratory/Chest: Present: Decreased Breath Sounds. No: Respiratory Distress, Accessory Muscle Use Cardiovascular: Present: Regular Rate and Rhythm, Normal S1, S2, Other ( pacemaker left chest wall). No: Murmurs Abdomen: No: Tenderness, Distention, Peritoneal Signs Back: Present: Normal Inspection Upper Extremity: Present: Normal Inspection, Norm 2-Pt Discrimination. No: Cyanosis, Edema Lower Extremity: Present: Edema Neurological: Present: GCS=15, CN II-XII Intact, Speech Normal Skin: Present: Warm, Dry, Normal Color. No: Rashes Psychiatric: Present: Alert, Oriented x 3, Normal Insight, Normal Concentration Medical Decision Making ED Course and Treatment: 11/16/17 13:17 Impression: 77 year old female presents to the emergency department complaining of worsening shortness of breath x 1 week. Plan: -- Labs -- Troponin -- Chest X-ray -- Reassess and disposition Progress Notes: 11/16/17 14:44 Chest X-ray reviewed, shows: LUNGS: No active pulmonary disease. PLEURA: No significant pleural effusion identified. No pneumothorax apparent. CARDIOVASCULAR: There is severe cardiomegaly. There is a dual lead pacemaker. OSSEOUS STRUCTURES: No significant abnormalities. VISUALIZED UPPER ABDOMEN: Normal. OTHER FINDINGS: Right-sided PICC line in the SVC IMPRESSION: No active disease. 11/16/17 15:21 Trop x 1 negative. BNP elevated. Lasix ordered. Spoke to patient's PMD who is requesting observation by hospitalist. Milirone ordered based on home dose ( 248mg/310ml D5W, 1.8ml/hr, 0.375mcg/kg/min). Will need tele observation for diuresis. - Lab Interpretations Lab Results: 11/16/17 13:28 11/16/17 13:28 Lab Results 11/16/17 13:28: Sodium 139, Potassium 4.3, Chloride 103, Carbon Dioxide 24, Anion Gap 16, BUN 33 H, Creatinine 1.3 H, Est GFR ( Amer) 48, Est GFR ( Non-Af Amer) 40, Random Glucose 101, Calcium 8.9, Total Bilirubin 0.5, AST 30, ALT 34, Alkaline Phosphatase 110, Total Creatine Kinase 85, Troponin I 0.03 D, NT-Pro-B Natriuret Pep 61369 H, Total Protein 6.7, Albumin 3.9, Globulin 2.7, Albumin/Globulin Ratio 1.4 11/16/17 13:28: PT 38.9 H, INR 3.33 H, APTT 38.1 H 11/16/17 13:28: WBC 6.1, RBC 3.98, Hgb 8.7 L, Hct 28.6 L, MCV 71.9 L, MCH 21.9 L , MCHC 30.4 L, RDW 17.7 H, Plt Count 316, MPV 8.6, Gran % 76.2 H, Lymph % (Auto ) 10.9 L, [place] % (Auto) 8.8 H, Eos % (Auto) 3.1, Baso % (Auto) 1.0, Gran # 4.67 , Lymph # (Auto) 0.7 L, [place] # (Auto) 0.5, Eos # (Auto) 0.2, Baso # (Auto) 0.06 - RAD Interpretation Radiology Orders: 11/16/17 12:54 CHEST TWO VIEWS (PA/LAT) [RAD] Stat - Medication Orders Current Medication Orders: Milrinone Lactate/Dextrose (Primacor 20mg/100ml D5w) 100 mls @ 8.165 mls/hr IV .[id number] PRN; 0.375 MCG/KG/MIN PRN Reason: TITRATE PER MD ORDER Discontinued Medications Furosemide (Lasix) 40 mg IVP STAT STA Stop: 11/16/17 14:58 - Scribe Statement The provider has reviewed the documentation as recorded by the Scribe Oliva Arreguin All medical record entries made by the Scribe were at my direction and personally dictated by me. I have reviewed the chart and agree that the record accurately reflects my personal performance of the history, physical exam, medical decision making, and the department course for this patient. I have also personally directed, reviewed, and agree with the discharge instructions and disposition. Disposition/Present on Arrival - Present on Arrival Any Indicators Present on Arrival: No History of DVT/PE: No History of Uncontrolled Diabetes: No Urinary Catheter: No History of Decub. Ulcer: No History Surgical Site Infection Following: None - Disposition Have Diagnosis and Disposition been Completed?: No Diagnosis: Anemia, Congestive heart failure, Shortness of breath Disposition: HOSPITALIZED Disposition Time: 15:05 Patient Plan: Admission Patient Problems: Current Active Problems Problem Status Onset Congestive heart failure Acute Anemia Acute Condition: FAIR Discharge Instructions (ExitCare): Heart Failure (ED) Referrals: Dejah Meza MD [Primary Care Provider] - Follow up with primary Forms: [employer] (Ukrainian)
[2017-11-16 13:39] LABS: BASO # 0.06 K/mm3 (0.0-2.0); EOS # 0.2 (0.0-0.7); EOS % 3.1 % (1.5-5.0); GRAN # 4.67 (1.4-6.5); GRAN % 76.2 % (50.0-68.0); HEMOGLOBIN 8.7 g/dL (12.0-16.0); LYMPH # 0.7 (1.2-3.4); LYMPH % 10.9 % (22.0-35.0); MEAN CELL VOLUME 71.9 fl (80.0-105.0); MEAN CORPUSCULAR HEMOGLOBIN 21.9 pg (25.0-35.0); MEAN CORPUSCULAR HGB CONC 30.4 g/dl (31.0-37.0); MEAN PLATELET VOLUME 8.6 fl (7.0-11.0); MONO # 0.5 (0.1-0.6); MONO % 8.8 % (1.0-6.0); RBC 3.98 10^6/uL (3.5-6.1); RED CELL DISTRIBUTION WIDTH 17.7 % (11.5-14.5); WHITE BLOOD COUNT 6.1 10^3/ul (4.5-11.0)
[2017-11-16 13:51] LABS: ALB/GLOB RATIO 1.4 (1.1-1.8); ALBUMIN 3.9 g/dL (3.0-4.8); CALCIUM 8.9 mg/dL (8.4-10.5)
[2017-11-16 14:01] LABS: TROPONIN I 0.03 ng/mL
[2017-11-16 14:10] LABS: INR 3.33 (0.93-1.08); PARTIAL THROMBOPLASTIN TIME 38.1 Seconds (25.1-36.5); PROTHROMBIN TIME 38.9 SECONDS (9.4-12.5)
--- NOTE | 2017-11-16 14:40 | RAD ---
HISTORY: cough COMPARISON: 06/10/2017 TECHNIQUE: Chest PA and lateral FINDINGS: LUNGS: No active pulmonary disease. PLEURA: No significant pleural effusion identified. No pneumothorax apparent. CARDIOVASCULAR: There is severe cardiomegaly. There is a dual lead pacemaker. OSSEOUS STRUCTURES: No significant abnormalities. VISUALIZED UPPER ABDOMEN: Normal. OTHER FINDINGS: Right-sided PICC line in the SVC IMPRESSION: No active disease.
--- NOTE | 2017-11-16 16:27 | CARD ---
APPROVED REPORT EKG Measurement Heart [id number] AR [id number] <Conclusion> AV sequential or dual chamber electronic pacemaker: 100% AV paced
[2017-11-16] MEDS: Milrinone 20mg/100ml D5W 100 ML IV PRN (17:46)
[2017-11-16] MEDS ORDERED: Azithromycin 500MG/NS 250ml 500 MG/250 ML BAG IVPB SCH (18:00)
[2017-11-16] MEDS ORDERED: Metoprolol Succinate 25 mg XL Tab PO SCH (18:00)
[2017-11-16] MEDS ORDERED: Pantoprazole 40 mg EC Tab PO SCH (18:00)
--- NOTE | 2017-11-16 18:03 | CP.PCM.HP ---
<Iliana Randolph - Last Filed: 11/16/17 18:00> History of Present Illness - History of Present Illness History of Present Illness: Iliana Randolph, PGY1, Progress Note for Dr Liu: CC: worsening sob, body swelling, weight gain? 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 Pt states that she has had URI like symptoms for past week, finished amoxicillin last Monday as per PMD, with improvement of her cough. However, she still has a dry cough. She reports exertional dyspnea with walking a block or so (previously was able to walk a 4-5 blocks). Denies using extra pillows to sleep at night. States that she feels that "all her body is swollen" with leg swelling as well. Denies recent travel or sick contacts. Denies cp, headache, n/ v/f/c, abdominal pain, diarrhea, poor PO intake, dizziness, weakness, decreased appetite, urinary symptoms. In ED: pt afebrile, hemodynamically stable. Trace pedal edema on exam with mildly decreased b/l breath sounds on lung exam. No leukocytosis, supratherapeutic INR 3.33. CXR shows mild vascular congestion. Given lasix 40 IV , started on home milrinone drip @ 0.375 mcg/kg/min. 12 point ROS obtained and negative, except as per HPI. PMD: Dr. Fletcher Field Cashier: Dr. 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 Walks by self, no assistive devices. Denied alcohol, ciggs, recreational drug use. Prior [facility] visits: syncope on 04/2017 Present on Admission - Present on Admission Any Indicators Present on Admission: No History of DVT/PE: No History of Uncontrolled Diabetes: No Urinary Catheter: No Decubitus Ulcer Present: No Review of Systems - Review of Systems All systems: reviewed and no additional remarkable complaints except Review of Systems: as per HPI Past Patient History - Infectious Disease Hx of Infectious Diseases: None - Tetanus Immunizations Tetanus Immunization: Unknown - Past Social History Smoking Status: Never Smoked - CARDIAC Hx Cardiac Disorders: Yes Hx Angina: Yes Hx Cardia Arrhythmia: Yes (afib) Hx Congestive Heart Failure: Yes Hx Hypertension: Yes Hx Internal Defibrillator: Yes (2 yrs ago) Hx Pacemaker: Yes - PULMONARY Hx Respiratory Disorders: Yes Hx Pneumonia: Yes - NEUROLOGICAL Hx Neurological Disorder: No - HEENT Hx HEENT Problems: No - RENAL Hx Chronic Kidney Disease: No - ENDOCRINE/METABOLIC Hx Endocrine Disorders: No - HEMATOLOGICAL/ONCOLOGICAL Hx Blood Disorders: Yes Hx Anemia: Yes - INTEGUMENTARY Hx Dermatological Problems: No - MUSCULOSKELETAL/RHEUMATOLOGICAL Hx Musculoskeletal Disorders: No Hx Falls: No - GASTROINTESTINAL Hx Gastrointestinal Disorders: No - GENITOURINARY/GYNECOLOGICAL Hx Genitourinary Disorders: No - PSYCHIATRIC Hx Psychophysiologic Disorder: No Hx Substance Use: No - SURGICAL HISTORY Hx Cardiac Catheterization: Yes Hx Cholecystectomy: Yes - ANESTHESIA Hx Anesthesia: Yes Hx Anesthesia Reactions: No Hx Malignant Hyperthermia: No Meds Allergies/Adverse Reactions: Allergies Allergy/AdvReac Type Severity Reaction Status Date / Time heparin Allergy SWELLING Verified 11/16/17 12:25 iodine Allergy RASH Verified 11/16/17 12:25 levofloxacin Allergy RASH Verified 11/16/17 12:25 sulfur [From Sulfur-8] Allergy RASH Verified 11/16/17 12:25 Physical Exam - Constitutional Appears: Non-toxic, No Acute Distress, Older Than Stated Age - Head Exam Head Exam: ATRAUMATIC, NORMOCEPHALIC - Eye Exam Eye Exam: EOMI, Normal appearance, PERRL. absent: Conjunctival injection, Nystagmus, Scleral icterus Pupil Exam: NORMAL ACCOMODATION, PERRL. absent: Fixed, Irregular, Miosis, Unequal - ENT Exam ENT Exam: Mucous Membranes Moist - Neck Exam Neck exam: Positive for: Full Rom - Respiratory Exam Respiratory Exam: Decreased Breath Sounds (in bilateral lower lobes, otherwise CTA b/l in upper lobes). absent: Accessory Muscle Use, Rales, Rhonchi, Wheezes , Respiratory Distress, Stridor - Cardiovascular Exam Cardiovascular Exam: RRR, +S1, +S2. absent: Systolic Murmur - GI/Abdominal Exam GI & Abdominal Exam: Normal Bowel Sounds, Soft. absent: Distended, Firm, Guarding, Mass, Organomegaly, Rebound, Rigid, Tenderness - Extremities Exam Extremities exam: Positive for: normal capillary refill, pedal edema (trace b/l pedal edema), pedal pulses present. Negative for: calf tenderness - Back Exam Back exam: NORMAL INSPECTION. absent: CVA tenderness (L), CVA tenderness (R) - Neurological Exam Neurological exam: Alert, Oriented x3 - Psychiatric Exam Psychiatric exam: Normal Affect, Normal Mood - Skin Skin Exam: Dry, Normal Color, Warm Results - Vital Signs Recent Vital Signs: Last Vital Signs Temp 97.7 F 11/16/17 16:43 Pulse 85 11/16/17 17:46 Resp 18 11/16/17 16:43 BP 131/59 L 11/16/17 17:46 Pulse Ox 95 11/16/17 16:43 - Labs Result Diagrams: 11/16/17 13:28 11/16/17 13:28 Assessment & Plan - Assessment and Plan (Free Text) Assessment: 77 year old female with PMH systolic CHF with EF 19% (04/2017) on home milrinone drip, cardiomyopathy, nonobstructive CAD, HLD, constipation, CODY, afib ? on Coumadin, presents for worsening SOB, URI symptoms: Worsening SOB: 2/2 acute bronchitis vs CHF exacerbation - received lasix in ED - BNP elevated - Lasix 60 mg IV daily (pt at 60 mg PO daily at home) - Strict I&Os - Daily weights - Fluid restriction to 1200 cc - CXR shows severe cardiomegaly, mild vascular congestion, no infiltrates - repeat CXR tomorrow - Zithromax Chronic anemia: - microcytic MCV 71 - iron studies, b12, folate - monitor Supratherapeutic INR: - INR 3.33 - Hold coumadin dose today - home regimen: Coumadin 5 mg Mon-. 2.5 mg Mon-Sun - Monitor daily INR Hx of CHF/CAD: - echo 04/2017 shows EF 19.7%. four chamber enlargement. severe MR. mod to severe TR. severe global hypokinesis. - c/w home milrinone drip - home toprol with holding parameters - home amiodarone PPX: protonix, scds HHD (2 gm Na, 1.2 L fluid) Case discussed with Dr Liu. Iliana Randolph, PGY1 - Date & Time Date: 11/16/17 Time: 18:29 <Franklin Liu - Last Filed: 11/16/17 18:43> Results - Vital Signs Recent Vital Signs: Last Vital Signs Temp 97.7 F 11/16/17 16:43 Pulse 85 11/16/17 17:46 Resp 18 11/16/17 16:43 BP 131/59 L 11/16/17 17:46 Pulse Ox 95 11/16/17 16:43 - Labs Result Diagrams: 11/16/17 13:28 11/16/17 13:28 Attending/Attestation - Attestation Notes (Text): Patient seen and examined. Agree with above Symptoms of worsening dyspnea over the past few days with lower ext edema Most likely attributed to acute exacerbation of systolic HF with reduced EF and NYHA class III-IV symptoms IV lasix for diuresis. Continue with Milrinone gtt Will assess cardiopulmonary status; daily weights, I/O's, fluid restriction Further management, diagnostics and/or treatment as hospital course progresses
[2017-11-16 18:10] LABS: TOTAL IRON BINDING CAPACITY 466 ug/dL (265-497)
[2017-11-16 18:16] LABS: % IRON SATURATION 2 % (20-55); IRON 10 ug/dL (45-180)
[2017-11-16 20:26] LABS: HDL CHOLESTEROL 39 mg/dL (29-60)
[2017-11-16 20:37] LABS: LDL CHOLESTEROL 72 mg/dL (0-129)
[2017-11-16 21:42] LABS: FERRITIN 12.2 ng/mL
[2017-11-16 22:12] LABS: FOLATE 17.3 ng/mL
[2017-11-16 23:03] VITALS: BMI 25.0
[2017-11-16] MEDS ORDERED: Pneumococcal 23-Valent Vaccine IM ONE (23:04)
[2017-11-17] MEDS: Milrinone 20mg/100ml D5W 100 ML IV PRN (04:50)
[2017-11-17 06:29] LABS: BASO # 0.05 K/mm3 (0.0-2.0); BASO % 0.8 % (0.0-3.0); EOS # 0.3 (0.0-0.7); EOS % 4.8 % (1.5-5.0); GRAN # 4.39 (1.4-6.5); GRAN % 72.4 % (50.0-68.0); HEMOGLOBIN 8.3 g/dL (12.0-16.0); LYMPH # 0.9 (1.2-3.4); LYMPH % 14.4 % (22.0-35.0); MEAN CELL VOLUME 71.5 fl (80.0-105.0); MEAN CORPUSCULAR HEMOGLOBIN 21.7 pg (25.0-35.0); MEAN CORPUSCULAR HGB CONC 30.3 g/dl (31.0-37.0); MEAN PLATELET VOLUME 8.7 fl (7.0-11.0); MONO # 0.5 (0.1-0.6); MONO % 7.6 % (1.0-6.0); RBC 3.83 10^6/uL (3.5-6.1); RED CELL DISTRIBUTION WIDTH 17.8 % (11.5-14.5); WHITE BLOOD COUNT 6.1 10^3/ul (4.5-11.0)
[2017-11-17 06:35] VITALS: RESP 18
[2017-11-17 06:36] LABS: INR 2.91 (0.93-1.08); PROTHROMBIN TIME 34.2 SECONDS (9.4-12.5)
[2017-11-17 06:37] LABS: PARTIAL THROMBOPLASTIN TIME 32.7 Seconds (25.1-36.5)
[2017-11-17 06:42] LABS: ALB/GLOB RATIO 1.3 (1.1-1.8); ALBUMIN 3.5 g/dL (3.0-4.8); CALCIUM 8.7 mg/dL (8.4-10.5)
[2017-11-17] MEDS ORDERED: Metoprolol Succinate 25 mg XL Tab PO SCH (10:00)
--- NOTE | 2017-11-17 10:30 | RAD ---
HISTORY: chf exacerbation COMPARISON: 11/16/2017 FINDINGS: LUNGS: No active pulmonary disease. PLEURA: No significant pleural effusion identified, no pneumothorax apparent. CARDIOVASCULAR: Moderate cardiomegaly. OSSEOUS STRUCTURES: No significant abnormalities. VISUALIZED UPPER ABDOMEN: Normal. OTHER FINDINGS: Right-sided PICC line in satisfactory position. Tool lead pacemaker IMPRESSION: No active disease.
[2017-11-17] MEDS ORDERED: Milrinone 20mg/100ml D5W 100 ML IV PRN (10:31)
[2017-11-17] MEDS ORDERED: SACUBITRIL 24mg/VALSARTAN 26mg tab PO SCH (10:45)
[2017-11-17 12:57] VITALS: BP 97/58; TEMP 98.6
--- NOTE | 2017-11-17 13:07 | CP.PCM.DIS ---
<Med Ellis - Last Filed: 11/17/17 12:53> Provider - Provider Date of Admission: 11/16/17 15:02 Attending physician: Franklin Liu Primary care physician: Dejah Fletcher MD Time Spent in preparation of Discharge (in minutes): 45 Hospital Course - Lab Results Lab Results: Most Recent Lab Values WBC 6.1 10^3/ul (4.5-11.0) 11/17/17 05:40 RBC 3.83 10^6/uL (3.5-6.1) 11/17/17 05:40 Hgb 8.3 g/dL (12.0-16.0) L 11/17/17 05:40 Hct 27.4 % (36.0-48.0) L 11/17/17 05:40 MCV 71.5 fl (80.0-105.0) L 11/17/17 05:40 MCH 21.7 pg (25.0-35.0) L 11/17/17 05:40 MCHC 30.3 g/dl (31.0-37.0) L 11/17/17 05:40 RDW 17.8 % (11.5-14.5) H 11/17/17 05:40 Plt Count 309 10^3/uL (120.0-450.0) 11/17/17 05:40 MPV 8.7 fl (7.0-11.0) 11/17/17 05:40 Gran % 72.4 % (50.0-68.0) H 11/17/17 05:40 Lymph % (Auto) 14.4 % (22.0-35.0) L 11/17/17 05:40 Whitfield % (Auto) 7.6 % (1.0-6.0) H 11/17/17 05:40 Eos % (Auto) 4.8 % (1.5-5.0) 11/17/17 05:40 Baso % (Auto) 0.8 % (0.0-3.0) 11/17/17 05:40 Gran # 4.39 (1.4-6.5) 11/17/17 05:40 Lymph # (Auto) 0.9 (1.2-3.4) L 11/17/17 05:40 Whitfield # (Auto) 0.5 (0.1-0.6) 11/17/17 05:40 Eos # (Auto) 0.3 (0.0-0.7) 11/17/17 05:40 Baso # (Auto) 0.05 K/mm3 (0.0-2.0) 11/17/17 05:40 PT 34.2 SECONDS (9.4-12.5) H 11/17/17 05:40 INR 2.91 (0.93-1.08) H 11/17/17 05:40 APTT 32.7 Seconds (25.1-36.5) 11/17/17 05:40 Sodium 144 mmol/L (132-148) 11/17/17 05:40 Potassium 4.0 mmol/L (3.6-5.0) 11/17/17 05:40 Chloride 106 mmol/L (98-107) 11/17/17 05:40 Carbon Dioxide 26 mmol/L (21-33) 11/17/17 05:40 Anion Gap 16 (10-20) 11/17/17 05:40 BUN 32 mg/dL (7-21) H 11/17/17 05:40 Creatinine 1.4 mg/dl (0.7-1.2) H 11/17/17 05:40 Est GFR ( Amer) 44 11/17/17 05:40 Est GFR (Non-Af Amer) 37 11/17/17 05:40 Random Glucose 97 mg/dL (70-110) 11/17/17 05:40 Calcium 8.7 mg/dL (8.4-10.5) 11/17/17 05:40 Iron 10 ug/dL (45-180) L 11/16/17 13:28 TIBC 466 ug/dL (265-497) 11/16/17 13:28 % Saturation 2 % (20-55) L 11/16/17 13:28 Ferritin 12.2 ng/mL 11/16/17 13:28 Total Bilirubin 0.6 mg/dL (0.2-1.3) 11/17/17 05:40 AST 30 U/L (14-36) 11/17/17 05:40 ALT 36 U/L (7-56) 11/17/17 05:40 Alkaline Phosphatase 113 U/L (38-126) 11/17/17 05:40 Total Creatine Kinase 85 U/L (35-230) 11/16/17 13:28 Troponin I 0.03 ng/mL D 11/16/17 13:28 NT-Pro-B Natriuret Pep 62980 pg/mL (0-450) H 11/16/17 13:28 Total Protein 6.2 g/dL (5.8-8.3) 11/17/17 05:40 Albumin 3.5 g/dL (3.0-4.8) 11/17/17 05:40 Globulin 2.8 gm/dL 11/17/17 05:40 Albumin/Globulin Ratio 1.3 (1.1-1.8) 11/17/17 05:40 Triglycerides 98 mg/dL (35-160) 11/16/17 13:28 Cholesterol 143 mg/dL (130-200) 11/16/17 13:28 LDL Cholesterol Direct 72 mg/dL (0-129) 11/16/17 13:28 HDL Cholesterol 39 mg/dL (29-60) 11/16/17 13:28 Vitamin B12 639 pg/mL (239-931) 11/16/17 13:28 Folate 17.3 ng/mL 11/16/17 13:28 - Hospital Course Hospital Course: 77 year old female with PMH dilated cardiomyopathy, allergic rhinitis, nonobstructive CAD with no stents, HLD, migraine, constipation, CODY (not on home bipap), systolic CHF with EF 19% (04/2017), presented for worsening sob for past week. Pt states that she has had URI like symptoms for past week, finished amoxicillin last Monday as per PMD, with improvement of her cough. However, she still has a dry cough. She reports exertion dyspnea with walking a block or so (previously was able to walk a 4-5 blocks). Stated that she feels that "all her body is swollen" with leg swelling as well. Admits to eating very salty foods over the weekend. Denies recent travel or sick contacts. While patient in the hospital, patient received a total of 120mg of lasix. Patient states swelling signficiantly decreased, and breathing became much easier. Patient started to walk further without shortness of breath. Cardiology came and evaluated the patient, and agreed no further need for intervention and continue the Lasix. INR was supratherapeutic at 3.33. INR was held and repeat is 2.7. Ok for the patient to resume tomorrow at home. Patient cleared for discharge home in stable condition. No need for new or additional medications at this time. Patient was counseled on a low sodium diet. Patient set to follow up with Dr. Pierce and primary doctor in office. Discharge Exam - Head Exam Head Exam: ATRAUMATIC, NORMOCEPHALIC - Eye Exam Eye Exam: EOMI. absent: Scleral icterus Pupil Exam: NORMAL ACCOMODATION - ENT Exam ENT Exam: Mucous Membranes Moist - Neck Exam Neck exam: Full Rom - Cardiovascular Exam Cardiovascular Exam: +S1, +S2. absent: Bradycardia, Tachycardia - GI/Abdominal Exam GI & Abdominal Exam: Soft. absent: Distended, Guarding, Mass, Rigid, Tenderness - Extremities Exam Additional comments: no pedal edema much improved from yesterday - Back Exam Back exam: absent: CVA tenderness (L), CVA tenderness (R) - Neurological Exam Neurological exam: Alert, Oriented x3 - Psychiatric Exam Psychiatric exam: Normal Affect - Skin Skin Exam: Intact, Warm Discharge Plan - Follow Up Plan Condition: FAIR Disposition: HOME/ ROUTINE Instructions: Heart Healthy Diet, Milrinone, Heart Failure (DC), Pacemaker (GEN ), Pulmonary Edema (DC) Additional Instructions: Discharge instructions: Please take the 5 mg of Coumadin when you get home tonight and resume all the home medications. Please weigh daily; if weight gain of 2 lbs or more, shortness of breath and/or swelling/edema noted- call doctor. Follow up with your primary physician within 1-2 weeks and follow up with Dr Pierce in 1 week; scheduled appointment for November 27 at 2:15 pm. If condition occurs again, go to the nearest emergency room. Continue "primacor home infusion" as previous. Diet: Heart Healthy diet and Avoid added salt. Avoid over abundance of green leafy vegetables while on coumadin. Patient states she is up to date with regards to the flu and the pneumococcal vaccines. Referrals: Carter Pierce MD [Staff Provider] - 11/27/17 2:15 pm () Dejah Meza MD [Primary Care Provider] - <Garth,Antione - Last Filed: 11/17/17 17:28> Provider - Provider Date of Admission: 11/16/17 15:02 Attending physician: Franklin Liu Primary care physician: Dejah Fletcher MD Hospital Course - Lab Results Lab Results: Most Recent Lab Values WBC 6.1 10^3/ul (4.5-11.0) 11/17/17 05:40 RBC 3.83 10^6/uL (3.5-6.1) 11/17/17 05:40 Hgb 8.3 g/dL (12.0-16.0) L 11/17/17 05:40 Hct 27.4 % (36.0-48.0) L 11/17/17 05:40 MCV 71.5 fl (80.0-105.0) L 11/17/17 05:40 MCH 21.7 pg (25.0-35.0) L 11/17/17 05:40 MCHC 30.3 g/dl (31.0-37.0) L 11/17/17 05:40 RDW 17.8 % (11.5-14.5) H 11/17/17 05:40 Plt Count 309 10^3/uL (120.0-450.0) 11/17/17 05:40 MPV 8.7 fl (7.0-11.0) 11/17/17 05:40 Gran % 72.4 % (50.0-68.0) H 11/17/17 05:40 Lymph % (Auto) 14.4 % (22.0-35.0) L 11/17/17 05:40 Whitfield % (Auto) 7.6 % (1.0-6.0) H 11/17/17 05:40 Eos % (Auto) 4.8 % (1.5-5.0) 11/17/17 05:40 Baso % (Auto) 0.8 % (0.0-3.0) 11/17/17 05:40 Gran # 4.39 (1.4-6.5) 11/17/17 05:40 Lymph # (Auto) 0.9 (1.2-3.4) L 11/17/17 05:40 Whitfield # (Auto) 0.5 (0.1-0.6) 11/17/17 05:40 Eos # (Auto) 0.3 (0.0-0.7) 11/17/17 05:40 Baso # (Auto) 0.05 K/mm3 (0.0-2.0) 11/17/17 05:40 PT 34.2 SECONDS (9.4-12.5) H 11/17/17 05:40 INR 2.91 (0.93-1.08) H 11/17/17 05:40 APTT 32.7 Seconds (25.1-36.5) 11/17/17 05:40 Sodium 144 mmol/L (132-148) 11/17/17 05:40 Potassium 4.0 mmol/L (3.6-5.0) 11/17/17 05:40 Chloride 106 mmol/L (98-107) 11/17/17 05:40 Carbon Dioxide 26 mmol/L (21-33) 11/17/17 05:40 Anion Gap 16 (10-20) 11/17/17 05:40 BUN 32 mg/dL (7-21) H 11/17/17 05:40 Creatinine 1.4 mg/dl (0.7-1.2) H 11/17/17 05:40 Est GFR ( Amer) 44 11/17/17 05:40 Est GFR (Non-Af Amer) 37 11/17/17 05:40 Random Glucose 97 mg/dL (70-110) 11/17/17 05:40 Calcium 8.7 mg/dL (8.4-10.5) 11/17/17 05:40 Iron 10 ug/dL (45-180) L 11/16/17 13:28 TIBC 466 ug/dL (265-497) 11/16/17 13:28 % Saturation 2 % (20-55) L 11/16/17 13:28 Ferritin 12.2 ng/mL 11/16/17 13:28 Total Bilirubin 0.6 mg/dL (0.2-1.3) 11/17/17 05:40 AST 30 U/L (14-36) 11/17/17 05:40 ALT 36 U/L (7-56) 11/17/17 05:40 Alkaline Phosphatase 113 U/L (38-126) 11/17/17 05:40 Total Creatine Kinase 85 U/L (35-230) 11/16/17 13:28 Troponin I 0.03 ng/mL D 11/16/17 13:28 NT-Pro-B Natriuret Pep 90550 pg/mL (0-450) H 11/16/17 13:28 Total Protein 6.2 g/dL (5.8-8.3) 11/17/17 05:40 Albumin 3.5 g/dL (3.0-4.8) 11/17/17 05:40 Globulin 2.8 gm/dL 11/17/17 05:40 Albumin/Globulin Ratio 1.3 (1.1-1.8) 11/17/17 05:40 Triglycerides 98 mg/dL (35-160) 11/16/17 13:28 Cholesterol 143 mg/dL (130-200) 11/16/17 13:28 LDL Cholesterol Direct 72 mg/dL (0-129) 11/16/17 13:28 HDL Cholesterol 39 mg/dL (29-60) 11/16/17 13:28 Vitamin B12 639 pg/mL (239-931) 11/16/17 13:28 Folate 17.3 ng/mL 11/16/17 13:28 Attending/Attestation - Attestation I have personally seen and examined this patient.: Yes I have fully participated in the care of the patient.: Yes I have reviewed all pertinent clinical information, including history, physical exam and plan: Yes Notes (Text): acute on chronic systolic chf
[2017-11-17 14:17] VITALS: O2SAT 93
[2017-11-17 14:22] VITALS: PULSE 75
--- NOTE | 2017-11-17 16:21 | CON ---
DATE: 11/17/2017 INDICATION: Shortness of breath, edema, and history of CHF. HISTORY OF PRESENT ILLNESS: This is a 77-year-old woman known to me, admitted with shortness of breath which progressed on Monday evening with weight gain noted and increased peripheral edema. She came to the emergency room. She was given IV Lasix. This morning, she feels much better and back to normal. She reports eating at a restaurant last weekend, where she may have had more salt than she is used to. She also has had a recent URI. There is no chest pain, orthopnea, PND, syncope, presyncope, lightheadedness, dizziness, vertigo, palpitation, fever, chills, hemoptysis, sputum production, abdominal pain, nausea, vomiting, diarrhea, constipation, or melena. PAST MEDICAL HISTORY: Complex. She has severe LV dysfunction with a cardiomyopathy, on home milrinone and followed by the [facility] Heart Failure Team. She has had congestive heart failure and has been considered for cardiac transplantation in the past. Additional past medical history includes congestive heart failure, hypertension, defibrillator, paroxysmal atrial fibrillation, anemia, hysterectomy, and pneumonia. She has pulmonary hypertension. MEDICATIONS: At the time of admission include Aldactone, amiodarone, warfarin, Lasix b.i.d., Protonix, metoprolol, Entresto, aspirin, and milrinone infusion. ALLERGIES: SHE NOTED AN ALLERGY TO IODINE, SULFA, AND LEVAQUIN. SOCIAL HISTORY: She lives at home with her daughter. She is ambulatory, but limited. She does not smoke. She does not drink alcohol. FAMILY HISTORY: Notable for heart disease. REVIEW OF SYSTEMS: Ten-point review of systems is otherwise unremarkable except as noted above. PHYSICAL EXAMINATION: GENERAL: She is a well-developed woman, lying flat in bed on 2R telemetry, in no acute distress. VITAL SIGNS: She has a paced rhythm at 76 beats per minute. She is afebrile. Blood pressure 95/60, respirations 18, O2 sat 95% to 99% on room air. HEENT: Reveal neck vein distention. No thyromegaly, no carotid bruits. Mucous membranes moist. Conjunctivae pale. Neck is supple. LUNGS: Lung chaves, a few scattered rales. HEART: Normal first and second heart sounds. PMI is displaced laterally. ABDOMEN: Soft. Bowel sounds are present. There is no mass, organomegaly, tenderness, rebound, or guarding. No CVA tenderness. No palpable abdominal aortic aneurysm. EXTREMITIES: Reveal no cyanosis with a trace of pedal edema involving the dorsa of the feet. NEUROLOGIC: Awake, alert, and oriented. PSYCHIATRIC: Normal as to mood and affect. SKIN: Warm and dry. No rash or cellulitis. LABORATORY AND IMAGING: A portable chest x-ray which read as no acute disease. EKG shows AV pacing throughout. White count normal. Hemoglobin 8.3, hematocrit 27.4, and platelet count 309,000. INR 2.91 this morning, initially 3.3 yesterday. Electrolytes, BUN and creatinine unremarkable. Creatinine is 1.4 this morning. LFTs are unremarkable. Troponin 0.03. BNP 12,900. Total cholesterol 143, LDL 72. B12 and folate levels are okay. IMPRESSION: Lydia Cox is a 77-year-old woman, well known to me with end-stage congestive cardiomyopathy, on home milrinone, Entresto, and diuretics; who has developed increased shortness of breath and edema with weight gain which has developed over the last week or so. She had a course of an antibiotic for an upper respiratory infection. Her symptoms were worsened and she came to the hospital with improvement, following IV Lasix. At this point, I agreed with current plans. We are resuming her usual medications with the exception that Entresto does not seem to be on the formulary. She will get a dose of IV Lasix this morning. She would like to go home later today to resume her usual medications and usual followup with the Heart Failure Team at [facility]. She also had a recent ICD check by Dr. Koo and everything is in order. She will also follow with me. She will restrict her sodium intake. She will restrict her activity levels until she is feeling much better. She will continue milrinone infusion and she will call if there are any recurring symptoms. Carter Pierce MD ENEDINA
== END 2017-11-17 16:41 | disposition home or self-care (01) ==
LOC: ED 12:15 → ERH 15:02 → 2RNO 21:45
PROVIDERS: ADMIT Hospitalist; ATTEND Hospitalist
DX: I11.0 Hypertensive heart disease with heart failure (principal); I50.23 Acute on chronic systolic (congestive) heart failure; N17.9 Acute kidney failure, unspecified; I42.0 Dilated cardiomyopathy; I25.10 Atherosclerotic heart disease of native coronary artery without angina pectoris; D64.9 Anemia, unspecified; I48.0 Paroxysmal atrial fibrillation; I27.20 Pulmonary hypertension, unspecified; R79.1 Abnormal coagulation profile; J30.9 Allergic rhinitis, unspecified; Z79.01 Long term (current) use of anticoagulants; Z90.710 Acquired absence of both cervix and uterus
CPT/HCPCS: 36415; 71045; 71046; 80053; 80061; 82550; 82607; 82728; 82746; 83540; 83550; 83880; 84484; 85025; 85610; 85730; 93005; 96374; 96375; 96376; 99285; G0378; J0456; J1940; J2260

== ENCOUNTER 2018-08-31 14:04 | Outpatient (CLI) | payer MEDICARE | END 2018-08-31 14:05 | disposition home or self-care (01) | LOC: RAD 14:04 ==

== ENCOUNTER 2018-09-02 08:37 | Inpatient (IN) | payer MEDICARE ==
[2018-09-02 08:37] VITALS: PULSE 71
[2018-09-02] MEDS ORDERED: Albuterol-Ipratrop 3 mg / 0.5 (3 ml) UD ONE (08:46)
--- NOTE | 2018-09-02 09:10 | ED PDOC ---
Arrival/HPI - General Chief Complaint: Shortness Of Breath Time Seen by Provider: 09/02/18 08:57 Historian: Patient - History of Present Illness Narrative History of Present Illness (Text): 09/02/18 08:57 Lydia Cox is a 77 year old female, with a past medical history of CHF, dilated cardiomyopathy, pulmonary hypertension, paroxysmal fibrillation, generalized hypertension, and a hysterectomy, who presents to the emergency d [facility] complaining of upper back pain radiating across the shoulder blades bilaterally and shortness of breath since last night. Patient states shortness of breath is improved sitting up. Patient also states she feels as if she is retaining water. Patient states visiting her PMD two days ago for exact same symptoms, who ruled out pneumonia. Patient informs of milrinone bag for 3 years which has been discontinued. Patient states she still has her PICC Line. Patient denies fever, chills, headache, dizziness, chest pain, dyspnea on exertion, cough, diaphoresis, abdominal pain, nausea, vomiting, diarrhea, neck pain, or any other complaint. PMD: Dr. Fletcher [employer] Operator: Dr. Pichardo Time/Duration: 24 hours Symptom Onset: Sudden Symptom Course: Unchanged Activities at Onset: Light Context: Home Past Medical History - Provider Review Nursing Documentation Reviewed: Yes - Infectious Disease Hx of Infectious Diseases: None - Tetanus Immunization Tetanus Immunization: Unknown - Cardiac Hx Cardiac Disorders: Yes (cad, cardiomyopathy) Hx Angina: Yes Hx Cardiac Arrhythmia: Yes (afib) Hx Congestive Heart Failure: Yes Hx Internal Defibrillator: Yes (2010) Hx Pacemaker: Yes (2010) Hx Peripheral Edema: Yes (ble +1) Other/Comment: spider veins ble, hypotension - Pulmonary Hx Respiratory Disorders: Yes Hx Pneumonia: Yes Other/Comment: carmelina 15 yrs ago not on home bipap, no sleep apnea at present time as per pt - Neurological Hx Migraine: Yes - HEENT Hx HEENT Disorder: Yes (allergic rhinitis) - Renal Hx Renal Disorder: No - Endocrine/Metabolic Hx Endocrine Disorders: No - Hematological/Oncological Hx Blood Disorders: Yes Hx Anemia: Yes - Integumentary Hx Dermatological Disorder: No - Musculoskeletal/Rheumatological Hx Musculoskeletal Disorders: No Hx Falls: No - Gastrointestinal Hx Gastrointestinal Disorders: No - Genitourinary/Gynecological Hx Genitourinary Disorders: No - Psychiatric Hx Psychophysiologic Disorder: No Hx Substance Use: No - Surgical History Hx Cardiac Catheterization: Yes Hx Cholecystectomy: (pt denies) Hx Hysterectomy: Yes (age 38) - Anesthesia Hx Anesthesia: Yes Hx Anesthesia Reactions: No Hx Malignant Hyperthermia: No - Suicidal Assessment Feels Threatened In Home Enviroment: No Family/Social History - Physician Review Nursing Documentation Reviewed: Yes Family/Social History: No Known Family HX Smoking Status: Never Smoked Hx Alcohol Use: No Hx Substance Use: No Hx Substance Use Treatment: No Allergies/Home Meds Allergies/Adverse Reactions: Allergies heparin Allergy (Verified 09/02/18 08:42) SWELLING iodine Allergy (Verified 09/02/18 08:42) RASH levofloxacin Allergy (Verified 09/02/18 08:42) RASH sulfur [From Sulfur-8] Allergy (Verified 09/02/18 08:42) RASH Home Medications: Home Meds Medication Instructions Recorded Confirmed Pantoprazole [Protonix EC Tab] 40 mg PO DAILY 06/10/17 11/17/17 Furosemide [Lasix] 40 mg PO QAM 11/16/17 11/17/17 Alprazolam [Xanax] 0.25 mg PO DAILY PRN 11/17/17 11/17/17 Amiodarone [Cordarone] 100 mg PO DAILY 11/17/17 11/17/17 Aspirin [Ecotrin] 81 mg PO DAILY 11/17/17 11/17/17 Furosemide [Lasix] 20 mg PO DIN 11/17/17 11/17/17 Metoprolol Succinate XL [Toprol XL] 12.5 mg PO BRK 11/17/17 11/17/17 Milrinone [Primacor] 1.8 ml IV CONT 11/17/17 11/17/17 Sacubitril/Valsartan [Entresto 24 1 each PO BID 11/17/17 11/17/17 mg-26 mg Tablet] Warfarin [Coumadin] 2.5 mg PO 1800 11/17/17 11/17/17 Review of Systems - Physician Review All systems were reviewed & negative as marked: Yes - Review of Systems Constitutional: absent: Fevers Cardiovascular: absent: Chest Pain Physical Exam - Physical Exam Narrative Physical Exam (Text): 09/02/18 08:57 Constitutional: No acute distress. Head: Normocephalic. Atraumatic. Eyes: PERRL. ENT: Hoarse voice. Moist mucous membranes. Neck: Supple. Cardiovascular: Left sided pacemaker and defibrillator. Pitting edema bilaterally of lower extremities. Chest: No tenderness. Respiratory: Clear to auscultation bilaterally. GI: Soft. Nontender. Nondistended. Back: No CVA tenderness. Musculoskeletal: No tenderness. Skin: No rash. Neurologic: Alert, no focal deficit. Vital Signs Pulse Resp BP Pulse Ox 09/02/18 08:48 71 18 114/55 L 100 09/02/18 08:45 18 98 Respiratory Rate: Normal Appearance: Positive for: Well-Appearing, Non-Toxic, Comfortable Pain Distress: None Mental Status: Positive for: Alert and Oriented X 3 Medical Decision Making ED Course and Treatment: 09/02/18 08:57 Impression: Patient is a 77 year old female who presents to the emergency department complaining of upper back pain radiating to the shoulder blades bilaterally and shortness of breath. Patient informs visiting PMD for exact same symptoms 2 days ago. Plan: -- Labs -- Chest X-Ray -- Duoneb -- Lasix -- Reassess and disposition Prior Visits: Notes and results from previous visits were reviewed. Progress Notes: 09/02/18 09:25 Reviewed EKG, shows: Ventricularly paced rhythm at [address] elevations. 09/02/18 09:35 Chest X-Ray shows: IMPRESSION: Severe cardiomegaly and mild pulmonary venous congestion. Small effusions. Findings most likely represent developing congestive heart failure. 09/02/18 10:[address] Suazo (hospitalist), who accepts patient under his service. - RAD Interpretation Radiology Orders: 09/02/18 09:04 CHEST PORTABLE [RAD] Stat - Medication Orders Current Medication Orders: Discontinued Medications Furosemide (Lasix) 40 mg IVP STAT STA Stop: 09/02/18 09:05 - Scribe Statement The provider has reviewed the documentation as recorded by the Scribe Yunier Shaver All medical record entries made by the Scribe were at my direction and personally dictated by me. I have reviewed the chart and agree that the record accurately reflects my personal performance of the history, physical exam, medical decision making, and the department course for this patient. I have also personally directed, reviewed, and agree with the discharge instructions and disposition. Disposition/Present on Arrival - Present on Arrival Any Indicators Present on Arrival: No History of DVT/PE: No History of Uncontrolled Diabetes: No Urinary Catheter: No History of Decub. Ulcer: No History Surgical Site Infection Following: None - Disposition Have Diagnosis and Disposition been Completed?: Yes Diagnosis: CHF exacerbation Disposition: HOSPITALIZED Disposition Time: 10:20 Patient Plan: Admission, Telemetry Condition: FAIR Discharge Instructions (ExitCare): Heart Failure (ED) Forms: [employer] (Hungarian)
[2018-09-02] MEDS ORDERED: Albuterol-Ipratrop 3 mg / 0.5 (3 ml) UD IH STA (09:13)
[2018-09-02 09:30] LABS: BASO # 0.03 K/mm3 (0.0-2.0); BASO % 0.6 % (0.0-3.0); EOS # 0.1 (0.0-0.7); EOS % 1.5 % (1.5-5.0); HEMOGLOBIN 13.5 g/dL (12.0-16.0); LYMPH # 0.7 (1.2-3.4); LYMPH % 13.4 % (22.0-35.0); MEAN CELL VOLUME 93.2 fl (80.0-105.0); MEAN CORPUSCULAR HEMOGLOBIN 29.6 pg (25.0-35.0); MEAN CORPUSCULAR HGB CONC 31.8 g/dl (31.0-37.0); MEAN PLATELET VOLUME 10.2 fl (7.0-11.0); MONO # 0.3 (0.1-0.6); MONO % 5.7 % (1.0-6.0); RBC 4.56 10^6/uL (3.5-6.1); RED CELL DISTRIBUTION WIDTH 14.8 % (11.5-14.5); WHITE BLOOD COUNT 5.4 10^3/uL (4.5-11.0)
[2018-09-02 09:34] LABS: INR 2.84; PARTIAL THROMBOPLASTIN TIME 36.3 Seconds (26.9-38.3); PROTHROMBIN TIME 32.1 SECONDS (9.4-12.5)
--- NOTE | 2018-09-02 09:39 | RAD ---
Date of service: 09/02/2018 HISTORY: dyspnea COMPARISON: 08/31/2018. FINDINGS: The right PICC line terminates in the SVC. LUNGS: The lungs are well inflated. There is moderate pulmonary venous congestion. There is atelectasis/scarring in the right lower lobe. PLEURA: Small effusions. No pneumothorax. CARDIOVASCULAR: Severe cardiomegaly and prominent central vasculature. Stable position of left-sided permanent pacing device. No aortic atherosclerotic calcifications present. OSSEOUS STRUCTURES: Within normal limits for the patient's age. VISUALIZED UPPER ABDOMEN: Normal. OTHER FINDINGS: None. IMPRESSION: Severe cardiomegaly and mild pulmonary venous congestion. Small effusions. Findings most likely represent developing congestive heart failure.
[2018-09-02 09:52] LABS: ALB/GLOB RATIO 1.6 (1.1-1.8); ALBUMIN 4.4 g/dL (3.0-4.8); CALCIUM 9.7 mg/dL (8.4-10.5)
[2018-09-02 10:04] LABS: TROPONIN I 0.04 ng/mL
--- NOTE | 2018-09-02 10:54 | CP.PCM.HP ---
<Frederick Castillo - Last Filed: 09/02/18 11:36> History of Present Illness - History of Present Illness History of Present Illness: PGY-2 H&P for Dr Suazo Mrs Cox is a 77 year old female with a PMHx of systolic CHF (last known EF 20% from 2014), dilated cardiomyopathy, w/ AICD (last check by Dr Koo in 2018), non-obstructive CAD with no stents, pulmonary HTN, CODY (not on home cpap/bipap), paroxysmal atrial fibrillation on home warfarin, HTN who presents to our ED for worsening shortness of breath and mid-thoracic back pain x3 days. She states she saw her PMD on Monday who believed she might have pneumonia and sent her for a CXR. She had the CXR done. Her shortness of breath worsened to the point she couldn't lie down flat. She also endorsed a 2lb weight gain in the past 1 week. She believes her legs have swollen but is unsure. She denies cough, fever, chills, nausea, abdominal pain, dysuria, diarrhea. At baseline she is independent of ADL and can walk more than 10 blocks without issues. She is not on home oxygen nor home bipap. Of note she had been on home milrinone for 3 yea rs which was discontinued on 08/12/2018. She still has the PICC line in place. PMD: Dr. Fletcher Eyeglass Maker: Dr. Pichardo - also followed by [facility] PMHx: systolic CHF (last known EF 20% from 2014), dilated cardiomyopathy, w/ AICD, pulmonary HTN, paroxysmal atrial fibrillation, HTN PSHx: hysterectomy at age 38, AICD in 2010 Allergies: sulfa drugs, levaquin, heparin, iodine Home Meds: EMR reflects accurate home meds as cross-referenced by her home med list FamHx: Father, of CHF, Mother, from "old age" SocialHx: lives with daughter. Walks by self - more than 10 blocks, no assistive devices. Denied alcohol, ciggs, recreational drug use. Present on Admission - Present on Admission Any Indicators Present on Admission: No Review of Systems - Review of Systems All systems: reviewed and no additional remarkable complaints except (as stated in HPI) Past Patient History - Infectious Disease Hx of Infectious Diseases: None - Tetanus Immunizations Tetanus Immunization: Unknown - Past Social History Smoking Status: Never Smoked - CARDIAC Hx Cardiac Disorders: Yes (cad, cardiomyopathy) Hx Angina: Yes Hx Cardia Arrhythmia: Yes (afib) Hx Congestive Heart Failure: Yes Hx Internal Defibrillator: Yes (2010) Hx Pacemaker: Yes (2010) Hx Peripheral Edema: Yes (ble +1) Other/Comment: spider veins ble, hypotension - PULMONARY Hx Respiratory Disorders: Yes Hx Pneumonia: Yes Other/Comment: cody 15 yrs ago not on home bipap, no sleep apnea at present time as per pt - NEUROLOGICAL Hx Migraine: Yes - HEENT Hx HEENT Problems: Yes (allergic rhinitis) - RENAL Hx Chronic Kidney Disease: No - ENDOCRINE/METABOLIC Hx Endocrine Disorders: No - HEMATOLOGICAL/ONCOLOGICAL Hx Blood Disorders: Yes Hx Anemia: Yes - INTEGUMENTARY Hx Dermatological Problems: No - MUSCULOSKELETAL/RHEUMATOLOGICAL Hx Musculoskeletal Disorders: No Hx Falls: No - GASTROINTESTINAL Hx Gastrointestinal Disorders: No - GENITOURINARY/GYNECOLOGICAL Hx Genitourinary Disorders: No - PSYCHIATRIC Hx Psychophysiologic Disorder: No Hx Substance Use: No - SURGICAL HISTORY Hx Cardiac Catheterization: Yes Hx Cholecystectomy: (pt denies) Hx Hysterectomy: Yes (age 38) - ANESTHESIA Hx Anesthesia: Yes Hx Anesthesia Reactions: No Hx Malignant Hyperthermia: No Meds Allergies/Adverse Reactions: Allergies Allergy/AdvReac Type Severity Reaction Status Date / Time heparin Allergy SWELLING Verified 09/02/18 08:42 iodine Allergy RASH Verified 09/02/18 08:42 levofloxacin Allergy RASH Verified 09/02/18 08:42 sulfur [From Sulfur-8] Allergy RASH Verified 09/02/18 08:42 Physical Exam - Constitutional Appears: Well, Non-toxic, No Acute Distress - Head Exam Head Exam: ATRAUMATIC, NORMAL INSPECTION - Eye Exam Eye Exam: EOMI, Normal appearance, PERRL. absent: Scleral icterus - ENT Exam ENT Exam: Mucous Membranes Moist - Neck Exam Neck exam: Positive for: Full Rom, Normal Inspection. Negative for: Lymphadenopathy - Respiratory Exam Respiratory Exam: Rales, NORMAL BREATHING PATTERN. absent: Decreased Breath Sounds, Rhonchi, Wheezes, Stridor - Cardiovascular Exam Cardiovascular Exam: REGULAR RHYTHM, +S1, +S2. absent: Bradycardia, Tachycardia, JVD, Systolic Murmur Additional comments: +S3 Paced Rhythm - GI/Abdominal Exam GI & Abdominal Exam: Normal Bowel Sounds, Soft. absent: Distended, Firm, Guarding, Tenderness - Extremities Exam Extremities exam: Positive for: normal capillary refill, pedal edema, pedal pulses present. Negative for: joint swelling Additional comments: +1 pitting edema LE b/l - Back Exam Back exam: NORMAL INSPECTION. absent: CVA tenderness (L), CVA tenderness (R), muscle spasm, rash noted, tenderness, vertebral tenderness - Neurological Exam Neurological exam: Alert, Oriented x3 - Psychiatric Exam Psychiatric exam: Normal Affect, Normal Mood - Skin Skin Exam: Normal Color, Warm Additional comments: spider veins LE b/l Results - Vital Signs Recent Vital Signs: Last Vital Signs Temp Pulse 71 09/02/18 08:48 Resp 18 09/02/18 08:48 BP 114/55 L 09/02/18 09:28 Pulse Ox 100 09/02/18 08:48 - Labs Result Diagrams: 09/02/18 09:17 09/02/18 09:17 Labs: Laboratory Results - last 24 hr 09/02/18 09/02/18 09/02/18 09:17 09:17 09:17 WBC 5.4 RBC 4.56 Hgb 13.5 D Hct 42.5 MCV 93.2 D MCH 29.6 MCHC 31.8 RDW 14.8 H Plt Count 229 MPV 10.2 Neut % (Auto) 78.8 H Lymph % (Auto) 13.4 L Overton % (Auto) 5.7 Eos % (Auto) 1.5 Baso % (Auto) 0.6 Lymph # (Auto) 0.7 L Overton # (Auto) 0.3 Eos # (Auto) 0.1 Baso # (Auto) 0.03 Absolute Neuts (auto) 4.29 PT 32.1 H INR 2.84 APTT 36.3 Sodium 139 Potassium 5.2 H Chloride 104 Carbon Dioxide 22 Anion Gap 17 BUN 43 H Creatinine 1.5 H Est GFR ( Amer) 41 Est GFR (Non-Af Amer) 34 Random Glucose 124 H Calcium 9.7 Total Bilirubin 1.2 AST 69 H D ALT 72 H Alkaline Phosphatase 191 H D Total Creatine Kinase 102 Troponin I 0.04 D NT-Pro-B Natriuret Pep 23389 H Total Protein 7.2 Albumin 4.4 Globulin 2.8 Albumin/Globulin Ratio 1.6 Assessment & Plan - Assessment and Plan (Free Text) Plan: Mrs Cox is a 77 year old female with a PMHx of systolic CHF (last known EF 20% from 2015), dilated cardiomyopathy, w/ AICD (last check by Dr Koo in 2018), non-obstructive CAD with no stents, pulmonary HTN, paroxysmal atrial fibrillation on home warfarin, HTN who presents to our ED for worsening shortness of breath and mid-thoracic back pain x3 days. Of note, patient was on home milrinone for 3 years which was discontinued on 08/12/2018: #Acute on Chronic CHF Exacerbation -possibly 07/14 to recent discontinuation of her home milrinone drip which she was on for 3 years -inpatient admission monitor on telemetry -consulted cardiology, Dr Pichardo -cxr showed severe cardiomegaly and mild pulmonary venous congestion, small effusions, findings most likely represent developing congestive heart failure -ekg showed ventricularly paced rhythm -probnp 79618 (double from prior level) -f/u echo -strict Is/Os, head of bed 30 degrees, daily weights -lasix 40mg ivp bid -continue home meds entrestro 1 tablet bid, toprol xl 12.5mg po qd, aspirin 81mg po qd #Paroxysmal Atrial Fibrillation -ekg showed ventricularly paced rhythm -INR therapeutic -continue home warfarin 3mg po qd -continue home amiodarone 100mg po qd #ROSA -BUN/Cr 43/1.5 -baseline Cr ~1.8 -likely pre-renal from her CHF exacerbation -we'll continue her entresto which contains an ARB in light of the ROSA as addressing her CHF exacerbation takes priority -trend for now #Elevated LFTs -mild elevations in AST/ALT/Alk Phos -trend for now #Hyperkalemia -mildly elevated at 5.2 -takes entresto at home which can cause hyperkalemia - she was also take home potassium tablets -hold home potassium tablets -we'll continue her entresto which contains an ARB in light of the hyperkalemia as addressing her CHF exacerbation takes priority -trend for now #Mid-Thoracic Back Pain, Improved -improved -monitor kidney function -f/u UA Seen and discussed with Dr Suazo Decision To Admit - Pt Status Changed To: Hospital Disposition Of: Inpatient Admission - Admit Certification Admit to Inpatient:: After my assessment, the patient will require hospitalization for at least two midnights. This is because of the severity of symptoms shown, intensity of services needed, and/or the medical risk in this patient being treated as an outpatient. - . Bed Request Type: Telemetry <Jason Suazo - Last Filed: 09/02/18 13:13> Results - Vital Signs Recent Vital Signs: Last Vital Signs Temp Pulse 70 09/02/18 12:09 Resp 18 09/02/18 11:43 BP 100/68 09/02/18 12:09 Pulse Ox 96 09/02/18 11:43 - Labs Result Diagrams: 09/02/18 09:17 09/02/18 09:17 Labs: Laboratory Results - last 24 hr 09/02/18 09/02/18 09/02/18 09:17 09:17 09:17 WBC 5.4 RBC 4.56 Hgb 13.5 D Hct 42.5 MCV 93.2 D MCH 29.6 MCHC 31.8 RDW 14.8 H Plt Count 229 MPV 10.2 Neut % (Auto) 78.8 H Lymph % (Auto) 13.4 L Overton % (Auto) 5.7 Eos % (Auto) 1.5 Baso % (Auto) 0.6 Lymph # (Auto) 0.7 L Overton # (Auto) 0.3 Eos # (Auto) 0.1 Baso # (Auto) 0.03 Absolute Neuts (auto) 4.29 PT 32.1 H INR 2.84 APTT 36.3 Sodium 139 Potassium 5.2 H Chloride 104 Carbon Dioxide 22 Anion Gap 17 BUN 43 H Creatinine 1.5 H Est GFR ( Amer) 41 Est GFR (Non-Af Amer) 34 Random Glucose 124 H Calcium 9.7 Total Bilirubin 1.2 AST 69 H D ALT 72 H Alkaline Phosphatase 191 H D Total Creatine Kinase 102 Troponin I 0.04 D NT-Pro-B Natriuret Pep 87210 H Total Protein 7.2 Albumin 4.4 Globulin 2.8 Albumin/Globulin Ratio 1.6 Urine Color Urine Appearance Urine pH Ur Specific [place] Urine Protein Urine Glucose (UA) Urine Ketones Urine Blood Urine Nitrate Urine Bilirubin Urine Urobilinogen Ur Leukocyte Esterase 09/02/18 12:24 WBC RBC Hgb Hct MCV MCH MCHC RDW Plt Count MPV Neut % (Auto) Lymph % (Auto) Overton % (Auto) Eos % (Auto) Baso % (Auto) Lymph # (Auto) Overton # (Auto) Eos # (Auto) Baso # (Auto) Absolute Neuts (auto) PT INR APTT Sodium Potassium Chloride Carbon Dioxide Anion Gap BUN Creatinine Est GFR ( Amer) Est GFR (Non-Af Amer) Random Glucose Calcium Total Bilirubin AST ALT Alkaline Phosphatase Total Creatine Kinase Troponin I NT-Pro-B Natriuret Pep Total Protein Albumin Globulin Albumin/Globulin Ratio Urine Color Yellow Urine Appearance Clear Urine pH 6.5 Ur Specific [place] 1.015 Urine Protein Negative Urine Glucose (UA) Negative Urine Ketones Negative Urine Blood Negative Urine Nitrate Negative Urine Bilirubin Negative Urine Urobilinogen 0.2 Ur Leukocyte Esterase Negative Attending/Attestation - Attestation I have personally seen and examined this patient.: Yes I have fully participated in the care of the patient.: Yes I have reviewed all pertinent clinical information: Yes Notes (Text): 09/02/18 13:11 Medical record note made by the resident after discussion with my direction and input after the patient was personally seen and examined by me. I have reviewed the chart and agree that the record accurately reflects by personal performance of the history, physical exam, data review, and medical decision-making, in the course for the patient. I have also personally directed the plan of care. 77 year old female with PMH dilated cardiomyopathy,, nonobstructive CAD , HLD, migraine, , CODY ,systolic CHF with EF 19% (04/2017),Proxysmal AF on amiodrone and warfarin, is admitted with CHF exacerbation . We will start on IV lasix.We will follow up BUN and creatinin.We will get cardiology consult and repeat Echo INR is therapeautic will current dose of warfarin. Management plan was discussed in detail with patient. Education was provided.
[2018-09-02] MEDS: Metoprolol Succinate 25 mg XL Tab PO SCH (12:08)
[2018-09-02] MEDS: SACUBITRIL 24mg/VALSARTAN 26mg tab PO SCH ×3 (12:09→21:52)
[2018-09-02 12:29] LABS: PH,URINE 6.5 (4.7-8.0); URINE BILIRUBIN NEGATIVE (NEGATIVE); URINE BLOOD NEGATIVE (NEGATIVE); URINE GLUCOSE (UA) NEGATIVE (NEGATIVE); URINE LEUKOCYTE ESTERASE NEGATIVE Leu/uL (NEGATIVE); URINE PROTEIN NEGATIVE mg/dL (<30 mg/dL); URINE UROBILINOGEN 0.2 E.U./dL (<1 E.U./dL)
[2018-09-02 12:30] LABS: URINE APPEARANCE CLEAR (CLEAR); URINE COLOR YELLOW (YELLOW)
[2018-09-02 13:53] VITALS: BMI 23.6
[2018-09-02] MEDS ORDERED: SACUBITRIL 24mg/VALSARTAN 26mg tab PO SCH (18:10)
[2018-09-02] MEDS ORDERED: Albuterol-Ipratrop 3 mg / 0.5 (3 ml) UD IH PRN (19:22)
--- NOTE | 2018-09-02 19:45 | CARD ---
APPROVED REPORT Date of service: 09/02/2018 EKG Measurement Heart [id number] <Conclusion> Poor data quality, interpretation may be adversely affected Electronic ventricular pacemaker Atrial sensed, V paced with 1:1 capture
[2018-09-03 07:12] LABS: BASO # 0.03 K/mm3 (0.0-2.0); BASO % 0.5 % (0.0-3.0); EOS # 0.1 (0.0-0.7); EOS % 1.4 % (1.5-5.0); HEMOGLOBIN 12.9 g/dL (12.0-16.0); LYMPH # 0.7 (1.2-3.4); LYMPH % 10.8 % (22.0-35.0); MEAN CELL VOLUME 91.3 fl (80.0-105.0); MEAN CORPUSCULAR HEMOGLOBIN 29.7 pg (25.0-35.0); MEAN CORPUSCULAR HGB CONC 32.5 g/dl (31.0-37.0); MONO # 0.6 (0.1-0.6); MONO % 9.7 % (1.0-6.0); RBC 4.35 10^6/uL (3.5-6.1); RED CELL DISTRIBUTION WIDTH 14.7 % (11.5-14.5); WHITE BLOOD COUNT 6.4 10^3/uL (4.5-11.0)
[2018-09-03 07:14] LABS: INR 2.88; PROTHROMBIN TIME 32.6 SECONDS (9.4-12.5)
[2018-09-03 07:22] LABS: ALB/GLOB RATIO 1.4 (1.1-1.8); ALBUMIN 4.2 g/dL (3.0-4.8); CALCIUM 9.4 mg/dL (8.4-10.5)
--- NOTE | 2018-09-03 09:43 | US ---
Date of service: 09/03/2018 HISTORY: elevated LFTs COMPARISON: 11/15/2013. TECHNIQUE: Sonographic evaluation of the abdomen. FINDINGS: LIVER: Measures 18.1 cm. Patent portal vein. Portal venous flow: Hepatopetal. Unremarkable echogenicity of the liver parenchyma. No mass. No intrahepatic bile duct dilatation. GALLBLADDER: Cholelithiasis. Negative study for gallbladder wall thickening, pericholecystic fluid, sonographic Fink's sign. COMMON BILE DUCT: Measures 5.7 mm. No stones. No dilatation. PANCREAS: Unremarkable as visualized. No mass. No ductal dilatation. RIGHT KIDNEY: Measures 4.3 x 10.4cm. Normal echogenicity. No calculus, mass, or hydronephrosis. LEFT KIDNEY: Measures 5.2 x 11.1cm. Normal echogenicity. No calculus, mass, or hydronephrosis. Incidental upper pole cyst 2.4 by cyst 2.8 cm. SPLEEN: Normal in size and contour. No mass. AORTA: No aneurysmal dilatation. IVC: Unremarkable. OTHER FINDINGS: None. IMPRESSION: Cholelithiasis. No sonographic evidence of acute cholecystitis. Additional benign and/or incidental findings described above. No significant interval change compared to the prior examination(s).
[2018-09-03] MEDS: Metoprolol Succinate 25 mg XL Tab PO SCH (09:46)
[2018-09-03] MEDS: SACUBITRIL 24mg/VALSARTAN 26mg tab PO SCH ×2 (09:47→17:58)
--- NOTE | 2018-09-03 12:03 | CP.PCM.PN ---
<Otto Pitts - Last Filed: 09/03/18 12:54> Subjective - Date & Time of Evaluation Date of Evaluation: 09/03/18 Time of Evaluation: 08:00 - Subjective Subjective: Otto Pitts PGY1 Medicine Progress Note for Dr. Noonan Patient seen and examined at bedside this morning. No adverse overnight events. Patient denies cp, sob, n/v/d, abdominal pain, fever, chills, fatigue. BP noted to be 95/61. She has been trending low in regards to BP and mentions that she usually runs low. A full 12 point ROS was conducted and unremarkable except as stated above. Objective - Vital Signs/Intake and Output Vital Signs (last 24 hours): Temp Pulse Resp BP Pulse Ox 97.5 F L 80 20 98/64 L 95 09/03/18 06:00 09/03/18 10:00 09/03/18 06:00 09/03/18 09:47 09/03/18 06:00 Intake and Output: 09/03/18 09/03/18 06:59 18:59 Intake Total 630 Balance 630 - Medications Medications: Current Medications Albuterol/Ipratropium (Duoneb 3 Mg/0.5 Mg (3 Ml) Ud) 3 ml IH [id number] PRN PRN Reason: Shortness of Breath Amiodarone HCl (Cordarone) 100 mg PO DAILY [facility] Last Admin: 09/03/18 09:47 Dose: 100 mg Aspirin (Ecotrin) 81 mg PO DAILY [facility] Last Admin: 09/03/18 09:47 Dose: 81 mg Furosemide (Lasix) 40 mg IVP BID [facility] Last Admin: 09/03/18 09:47 Dose: 40 mg Metoprolol Succinate (Toprol Xl) 12.5 mg PO BRK [facility] Last Admin: 09/03/18 09:46 Dose: 12.5 mg Sacubitril/Valsartan (Entresto 24 Mg-26 Mg Tablet) 1 each PO BID [facility] Last Admin: 09/03/18 09:47 Dose: 1 each Warfarin Sodium (Coumadin) 3 mg PO 1800 [facility]; Protocol Last Admin: 09/02/18 17:55 Dose: 3 mg - Labs Labs: 09/03/18 06:30 09/03/18 06:30 PT 32.6 SECONDS (9.4-12.5) H 09/03/18 06:30 INR 2.88 09/03/18 06:30 APTT 36.3 Seconds (26.9-38.3) 09/02/18 09:17 - Constitutional Appears: No Acute Distress - Head Exam Head Exam: ATRAUMATIC, NORMAL INSPECTION, NORMOCEPHALIC - Eye Exam Eye Exam: EOMI, Normal appearance - ENT Exam ENT Exam: Mucous Membranes Moist - Neck Exam Neck Exam: Full ROM - Respiratory Exam Respiratory Exam: Clear to Ausculation Bilateral. absent: Accessory Muscle Use, Chest Wall Tenderness, Rales, Rhonchi, Wheezes - Cardiovascular Exam Cardiovascular Exam: RRR, +S1, +S2. absent: JVD, Murmur Additional comments: Paced Rhythm. - GI/Abdominal Exam GI & Abdominal Exam: Soft, Normal Bowel Sounds. absent: Tenderness - Extremities Exam Extremities Exam: Full ROM, Normal Capillary Refill, Normal Inspection. absent: Joint Swelling, Pedal Edema, Tenderness - Neurological Exam Neurological Exam: Alert, Awake, Oriented x3 - Psychiatric Exam Psychiatric exam: Normal Affect, Normal Mood - Skin Skin Exam: Dry, Intact, Normal Color, Warm Assessment and Plan - Assessment and Plan (Free Text) Assessment: Patient is a 77 year old female with a PMHx of systolic CHF (last known EF 20% from 2014), dilated cardiomyopathy, w/ AICD (last check by Dr Koo in 2018), non-obstructive CAD with no stents, pulmonary HTN, paroxysmal atrial fibrillation on home warfarin, HTN who presented to ED for worsening shortness of breath for 3 days duration. Patient was on home milrinone for 3 years which was discontinued on 08/12/2018 and has had a PICC line in place for the past 2 years. Patient admitted for acute on chronic CHF exacerbation in the setting of CHF-rEF. Plan: Acute on Chronic CHF Exacerbation in the setting of CHF-rEF -consider 2/2 recent discontinuation of her home milrinone drip which she was on for past 3 years; discontinued on 08/12/18 -Discussed with Cardiology (Dr. Pichardo) via phone, patient has been doing well off milrinone drip -f/u echo -c/w lasix 40mg IVP BID; improving lung exam -CXR: developing congestive heart failure -probnp [id number] on admission -c/w strict Is/Os, head of bed 30 degrees, daily weights -continue home meds entrestro 1 tablet bid, toprol xl 12.5mg po qd, aspirin 81mg po qd Worsening Transaminitis -may be secondary to amiodarone toxicity versus hypoperfusion due to hypotension -d/w cardiology in regards to amiodarone side effect. As per cardio, patient should continue with amiodarone -uptrending AST/ALT/Alk Phop. Continue to monitor. -Abdominal US: cholelithiasis. No evidence of cholecystitis. -f/u PICC team evaluation in regards to chronic PICC line for the past 2 years ROSA -consider pre-renal from CHF exacerbation vs medication induced -c/w entresto. As per cardio, c/w entresto as ROSA is mild and benefits of entresto outweighs risks -BUN/Cr 53/1.6 -baseline Cr 1.3 - 1.4 Paroxysmal Atrial Fibrillation -ekg showed ventricularly paced rhythm -INR therapeutic -continue home warfarin 3mg po qd -continue home amiodarone 100mg po qd DVT/GI ppx: not indicated Dispo: monitor patient on telemetry. Pending further cardio recs. Continue to monitor transaminitis. Case was discussed an reviewed with Attending Physician, Dr. Noonan. <Queta Noonan - Last Filed: 09/03/18 13:23> Objective - Vital Signs/Intake and Output Vital Signs (last 24 hours): Temp Pulse Resp BP Pulse Ox 98.6 F 70 70 H 96/61 L 95 09/03/18 12:00 09/03/18 12:00 09/03/18 12:00 09/03/18 12:00 09/03/18 06:00 Intake and Output: 09/03/18 09/03/18 06:59 18:59 Intake Total 630 Balance 630 - Medications Medications: Current Medications Albuterol/Ipratropium (Duoneb 3 Mg/0.5 Mg (3 Ml) Ud) 3 ml IH [id number] PRN PRN Reason: Shortness of Breath Amiodarone HCl (Cordarone) 100 mg PO DAILY [facility] Last Admin: 09/03/18 09:47 Dose: 100 mg Aspirin (Ecotrin) 81 mg PO DAILY [facility] Last Admin: 09/03/18 09:47 Dose: 81 mg Furosemide (Lasix) 40 mg IVP BID [facility] Last Admin: 09/03/18 09:47 Dose: 40 mg Metoprolol Succinate (Toprol Xl) 12.5 mg PO BRK [facility] Last Admin: 09/03/18 09:46 Dose: 12.5 mg Sacubitril/Valsartan (Entresto 24 Mg-26 Mg Tablet) 1 each PO BID [facility] Last Admin: 09/03/18 09:47 Dose: 1 each Warfarin Sodium (Coumadin) 3 mg PO 1800 [facility]; Protocol Last Admin: 09/02/18 17:55 Dose: 3 mg - Labs Labs: 09/03/18 06:30 09/03/18 06:30 PT 32.6 SECONDS (9.4-12.5) H 09/03/18 06:30 INR 2.88 09/03/18 06:30 APTT 36.3 Seconds (26.9-38.3) 09/02/18 09:17 Attending/Attestation - Attestation I have personally seen and examined this patient.: Yes I have fully participated in the care of the patient.: Yes I have reviewed all pertinent clinical information, including history, physical exam and plan: Yes Notes (Text): 09/03/18 13:18 77 year old female with past medical history of systolic CHF (EF 20%), dilated cardiomyopathy s/p AICD, formerly on milrinone which was recently discontinued, CAD, paroxysmal afib on coumadin and hypertension who presented with complaint of shortness of breath secondary to acute on chronic systolic CHF exacerbation. Continue with iv lasix bid. Cardiology evaluation and echocardiogram are pending. Patient also noted to have mildly elevated creatinine from her b aseline and transaminitis. Continue to monitor closely. US showed cholelithiasis without cholecystitis. Will need to review home medications, amiodarone and entresto, with transportation agent. Queta Noonan MD Hospitalist.
[2018-09-03 17:22] LABS: HEPATITIS B SURFACE AG Negative (NEGATIVE)
[2018-09-03 17:27] LABS: HEPATITIS A IGM NEGATIVE (NEGATIVE); HEPATITIS B CORE AB NEGATIVE (NEGATIVE)
[2018-09-03 17:39] LABS: HEPATITIS C ANTIBODY NEGATIVE (NEGATIVE)
[2018-09-04 06:41] LABS: INR 2.96; PROTHROMBIN TIME 33.5 SECONDS (9.4-12.5)
[2018-09-04 06:45] LABS: BASO # 0.03 K/mm3 (0.0-2.0); BASO % 0.5 % (0.0-3.0); EOS # 0.1 (0.0-0.7); EOS % 1.4 % (1.5-5.0); HEMOGLOBIN 12.2 g/dL (12.0-16.0); LYMPH # 0.9 (1.2-3.4); LYMPH % 13.1 % (22.0-35.0); MEAN CELL VOLUME 91.1 fl (80.0-105.0); MEAN CORPUSCULAR HEMOGLOBIN 29.4 pg (25.0-35.0); MEAN CORPUSCULAR HGB CONC 32.3 g/dl (31.0-37.0); MEAN PLATELET VOLUME 9.9 fl (7.0-11.0); MONO # 0.6 (0.1-0.6); MONO % 9.1 % (1.0-6.0); RBC 4.15 10^6/uL (3.5-6.1); RED CELL DISTRIBUTION WIDTH 14.7 % (11.5-14.5); WHITE BLOOD COUNT 6.6 10^3/uL (4.5-11.0)
[2018-09-04 07:11] LABS: ALB/GLOB RATIO 1.2 (1.1-1.8); ALBUMIN 3.7 g/dL (3.0-4.8); CALCIUM 9.3 mg/dL (8.4-10.5)
--- NOTE | 2018-09-04 08:13 | CON ---
DATE: 09/03/2018 REQUESTING PHYSICIAN: Dr. Noonan. REASON FOR CONSULTATION: Known cardiomyopathy, dyspnea. HISTORY OF PRESENT ILLNESS: This is a 77-year-old woman, well known to me with a history of longstanding congestive cardiomyopathy and paroxysmal atrial fibrillation, who presents to the emergency room complaining of worsening dyspnea for the past 1 to 2 days. She states she developed nonproductive cough and wheezing. She was seen by Dr. Meza. Recently started on antibiotics. Her symptoms worsened and she was sent for a chest x-ray. This did not show any clear evidence of congestive heart failure or pneumonia. She was then admitted for evaluation. She has a longstanding history of dilated cardiomyopathy with normal coronaries. She has had prior ICD in place. She had been on intravenous milrinone for sometime, but this has been discontinued for the past several years. PAST MEDICAL HISTORY: Notable for the problems mentioned above. MEDICATIONS AT HOME: Include Protonix, Lasix 40 mg daily, Xanax, amiodarone 100 mg daily, Ecotrin, Lasix 20 mg in the evening, metoprolol XL 12.5 mg daily, and Entresto 24/26 mg b.i.d., and morphine. ALLERGIES: SHE HAS HAD REACTION TO SULFA, LEVOFLOXACIN, IODINE, AND HEPARIN. SOCIAL HISTORY: She does not smoke or drink. She is . FAMILY HISTORY: Unremarkable for premature heart disease. REVIEW OF SYSTEMS: A 10-point review of systems is notable mainly for the problems mentioned above. PHYSICAL EXAMINATION: GENERAL: She is an elderly woman who appears comfortable at rest. VITAL SIGNS: Blood pressure is 98/64 with a pulse of 80 with ventricular pacing, and respirations are 16. NECK: No JVD or bruits. Carotid upstrokes are 1+ bilaterally. CHEST: Reveals few scattered rhonchi with no rales noted. HEART: Reveals PMI displaced laterally with paradoxical splitting the second sound and soft tones noted. Systolic murmur is present at the lower left sternal border and apex. ABDOMEN: Soft and nontender with normoactive bowel sounds. EXTREMITIES: No clubbing, cyanosis, or edema. SKIN: Warm and dry. PSYCHIATRIC: Normal mood and affect. NEUROLOGIC: Alert and oriented x3. No gross motor or sensory deficits noted. DIAGNOSTIC DATA: Potassium 4.8. BUN and creatinine 53 and 1.6. White count 6.4, hemoglobin and hematocrit are 12.9 and 39.7 with a platelet count of 221,000. INR 2.88. AST and ALT are 174 and 155 respectively. Alkaline phosphatase 177. Electrocardiograms reveals a atrial sensed and ventricular paced rhythm. Chest x-ray reveals moderately enlarged cardiac silhouette with increased vascular markings. IMPRESSION: 1. Decompensated congestive heart failure acute on chronic, predominantly systolic, possibly exacerbated by recent acute bronchitis. 2. Dilated cardiomyopathy. 3. Paroxysmal atrial fibrillation. 4. Status post implantable cardioverter-defibrillator implant. 5. Elevated transaminases, possibly due to passive congestion, but given concomitant use of amiodarone possible drug- induced effect may be playing a role. RECOMMENDATIONS: IV Lasix would be continued for now. Her cardiac medications will be continued and unchanged. If her transaminases rise higher, amiodarone would be withheld. Bronchodilator therapy should continue. Sodium and fluid restriction is planned. I will continue to follow and make further recommendations as appropriate. Thank you for this consultation. Gene Pichardo MD MTDD
--- NOTE | 2018-09-04 09:49 | CP.PCM.PN ---
<Otto Pitts - Last Filed: 09/04/18 17:31> Subjective - Date & Time of Evaluation Date of Evaluation: 09/04/18 Time of Evaluation: 08:00 - Subjective Subjective: Otto Ptits PGY1 Medicine Progress Note for Dr. Noonan Patient was seen and examined at bedside this morning. Vital signs stable, BP remains low around baseline at 91/67. No adverse overnight changes. She says her shortness of breath has improved. Denies cp, headache, fever, chills, n/v/d, fatigue. Patient did mention that she has chronic neck pain and prior to her ad mission, she was "taking tylenol 2 tablets every 4 hours". A full 12 point ROS was conducted and unremarkable except as stated above. Objective - Vital Signs/Intake and Output Vital Signs (last 24 hours): Temp Pulse Resp BP Pulse Ox 98 F 74 20 91/67 L 95 09/04/18 06:00 09/04/18 06:00 09/04/18 06:00 09/04/18 06:00 09/04/18 06:00 Intake and Output: 09/04/18 09/04/18 06:59 18:59 Intake Total 320 Balance 320 - Medications Medications: Current Medications Albuterol/Ipratropium (Duoneb 3 Mg/0.5 Mg (3 Ml) Ud) 3 ml IH [id number] PRN PRN Reason: Shortness of Breath Amiodarone HCl (Cordarone) 100 mg PO DAILY [facility] Last Admin: 09/03/18 09:47 Dose: 100 mg Aspirin (Ecotrin) 81 mg PO DAILY [facility] Last Admin: 09/03/18 09:47 Dose: 81 mg Furosemide (Lasix) 40 mg IVP BID [facility] Metoprolol Succinate (Toprol Xl) 12.5 mg PO BRK [facility] Last Admin: 09/03/18 09:46 Dose: 12.5 mg Sacubitril/Valsartan (Entresto 24 Mg-26 Mg Tablet) 1 each PO BID [facility] Last Admin: 09/03/18 17:58 Dose: 1 each Warfarin Sodium (Coumadin) 3 mg PO 1800 ANNE; Protocol Last Admin: 09/03/18 17:58 Dose: 3 mg - Labs Labs: 09/04/18 06:00 09/04/18 06:00 PT 33.5 SECONDS (9.4-12.5) H 09/04/18 06:00 INR 2.96 09/04/18 06:00 APTT 36.3 Seconds (26.9-38.3) 09/02/18 09:17 - Constitutional Appears: No Acute Distress - Head Exam Head Exam: ATRAUMATIC, NORMAL INSPECTION, NORMOCEPHALIC - Eye Exam Eye Exam: EOMI, Normal appearance - ENT Exam ENT Exam: Mucous Membranes Moist - Neck Exam Neck Exam: Full ROM - Respiratory Exam Respiratory Exam: Clear to Ausculation Bilateral. absent: Accessory Muscle Use, Chest Wall Tenderness, Rales, Rhonchi, Wheezes - Cardiovascular Exam Cardiovascular Exam: RRR, +S1, +S2. absent: JVD, Murmur Additional comments: Paced Rhythm. - GI/Abdominal Exam GI & Abdominal Exam: Soft, Normal Bowel Sounds. absent: Tenderness - Extremities Exam Extremities Exam: Full ROM, Normal Capillary Refill, Normal Inspection. absent: Joint Swelling, Pedal Edema, Tenderness - Neurological Exam Neurological Exam: Alert, Awake, Oriented x3 - Psychiatric Exam Psychiatric exam: Normal Affect, Normal Mood - Skin Skin Exam: Dry, Intact, Normal Color, Warm Assessment and Plan - Assessment and Plan (Free Text) Assessment: Patient is a 77 year old female with a PMHx of systolic CHF (last known EF 20% from 2014), dilated cardiomyopathy, w/ AICD (last check by Dr Koo in 2018), non-obstructive CAD with no stents, pulmonary HTN, paroxysmal atrial fibrillation on home warfarin, HTN who presented to ED for worsening shortness of breath for 3 days duration. Patient was on home milrinone for 3 years which was discontinued on 08/12/2018 and has had a PICC line in place for the past 2 years. Patient admitted for acute on chronic CHF exacerbation in the setting of CHF-rEF. During hospital course, patient had worsening transaminitis. Plan: Worsening Transaminitis -Consider 2/2 tylenol abuse prior to admission vs amiodarone toxicity -Given uptrending LFTs, amiodarone held as per cardio recommendations -GI consulted (Dr. August). Follow up recs. -Abdominal US: cholelithiasis. No evidence of cholecystitis. Acute on Chronic CHF Exacerbation in the setting of CHF-rEF - improved -on milrinone for past 3 years; discontinued on 08/12/18 -Cardiology on consult (Dr. Pichardo) and recs appreciated. -Echo: EF 10%. Global hypokinesis as well as septal dyskensis. Severe MR and TR. AICD present. -c/w lasix 40mg IVP BID; lung exam improved since admission -CXR: developing congestive heart failure -probnp [id number] on admission -c/w strict Is/Os, head of bed 30 degrees, daily weights -continue home meds entrestro 1 tablet bid, toprol xl 12.5mg po qd, aspirin 81mg po qd ROSA -consider pre-renal from CHF exacerbation vs medication induced -c/w entresto as per cardio recs -BUN/Cr 58/1.6 - stable (baseline Cr 1.3 - 1.4) Paroxysmal Atrial Fibrillation -INR was 2.96; held warfarmin home med at this time -held home amiodarone 100mg po qd given transaminitis Chronic Neck Pain -Muculoskeletal in origin -[facility] for pain; avoid flexeril as it may actually worsen liver function DVT/GI ppx: not indicated Diet: HHD Dispo: monitor patient on telemetry. Patient cleared by cardio. Pending recommendations from GI for worsening transaminitis. Case was discussed an reviewed with Attending Physician, Dr. Noonan. <Queta Noonan - Last Filed: 09/04/18 17:49> Objective - Vital Signs/Intake and Output Vital Signs (last 24 hours): Temp Pulse Resp BP Pulse Ox 97.4 F L 70 20 94/50 L 95 09/04/18 12:00 09/04/18 14:00 09/04/18 12:00 09/04/18 17:27 09/04/18 06:00 Intake and Output: 09/04/18 09/04/18 06:59 18:59 Intake Total 320 Balance 320 - Medications Medications: Current Medications Albuterol/Ipratropium (Duoneb 3 Mg/0.5 Mg (3 Ml) Ud) 3 ml IH [id number] PRN PRN Reason: Shortness of Breath Amiodarone HCl (Cordarone) 100 mg PO DAILY [facility] Last Admin: 09/03/18 09:47 Dose: 100 mg Aspirin (Ecotrin) 81 mg PO DAILY [facility] Last Admin: 09/04/18 10:38 Dose: 81 mg Camphor/Menthol (Bengay) 0 gm TOP QID PRN PRN Reason: Muscle spasm Last Admin: 09/04/18 17:28 Dose: 1 applic Furosemide (Lasix) 40 mg IVP BID [facility] Last Admin: 09/04/18 17:27 Dose: 40 mg Metoprolol Succinate (Toprol Xl) 12.5 mg PO BRK [facility] Last Admin: 09/04/18 10:38 Dose: 12.5 mg Sacubitril/Valsartan (Entresto 24 Mg-26 Mg Tablet) 1 each PO BID [facility] Last Admin: 09/04/18 17:25 Dose: 1 each Warfarin Sodium (Coumadin) 3 mg PO 1800 ANNE; Protocol Last Admin: 09/03/18 17:58 Dose: 3 mg - Labs Labs: 09/04/18 06:00 09/04/18 06:00 PT 33.5 SECONDS (9.4-12.5) H 09/04/18 06:00 INR 2.96 09/04/18 06:00 APTT 36.3 Seconds (26.9-38.3) 09/02/18 09:17 Attending/Attestation - Attestation I have personally seen and examined this patient.: Yes I have fully participated in the care of the patient.: Yes I have reviewed all pertinent clinical information, including history, physical exam and plan: Yes Notes (Text): 09/04/18 17:47 77 year old female with past medical history of systolic CHF (EF 20%), dilated cardiomyopathy s/p AICD, formerly on milrinone which was recently discontinued, CAD, paroxysmal afib on coumadin and hypertension who presented with complaint of shortness of breath secondary to acute on chronic systolic CHF exacerbation. Symptoms have improved with iv lasix bid. Cardiology is following. Echocardiogram was reviewed. CKD is stable. LFTs however are increasing. May be secondary to medications (amiodarone and tylenol use at home). Amiodarione is now on hold. GI evaluation is requested. Continue to monitor closely. US showed cholelithiasis without cholecystitis. Queta Noonan MD Hospitalist.
--- NOTE | 2018-09-04 10:15 | CARD ---
APPROVED REPORT Date of service: 09/04/2018 EXAM: Two-dimensional and M-mode echocardiogram with Doppler and color Doppler. INDICATION Congestive Heart Failure 2D DIMENSIONS Left Atrium (2D)4.9 (1.6-4.0cm)IVSd1.0 (0.7-1.1cm) LVDd6.7 (3.9-5.9cm)PWd1.0 (0.7-1.1cm) LVDs6.4 (2.5-4.0cm)FS (%) 4.7 % LVEF (%)10.0 (>50%) M-Mode DIMENSIONS Aortic Root2.70 (2.2-3.7cm)Aortic Cusp Exc.1.40 (1.5-2.0cm) Aortic Valve AoV Peak Oonuthmo629.0cm/Jorden Peak GR.6mmHg Mitral Valve MV E Pcckgmcf832.0cm/sMV A Lhrnnmig10.0cm/sE/A ratio1.8 TDI E/Lateral E'0.0E/Medial E'0.0 Tricuspid Valve TR Peak [id number]/sRAP [id number] Peak Gr.44mmHg [id number] LEFT VENTRICLE The Left Ventricle is severely dilated. There is normal left ventricular wall thickness. The ejection fraction is severely impaired. There is global hypokinesis of the left ventricle. There is dyskinesis of the septal wall. RIGHT VENTRICLE The right ventricle is mildly dilated. There is an ICD lead in the right ventricle. ATRIA The left atrium is moderately dilated. The right atrium is moderately dilated. The inferior vena cava is dilated. The interatrial septum is intact with no evidence for an atrial septal defect. AORTIC VALVE The aortic valve is normal in structure. There is trace aortic regurgitation. There is no aortic valvular stenosis. MITRAL VALVE Mitral annular calcification is moderate. The mitral valve is mildly thickened. Mitral regurgitation is severe. TRICUSPID VALVE The tricuspid valve is normal in structure. There is severe tricuspid regurgitation. PULMONIC VALVE The pulmonary valve is normal in structure. GREAT VESSELS The aortic root is normal in size. Dilated IVC with poor inspiration collapse is consistent with elevated right atrial pressure. PERICARDIAL EFFUSION There is no pleural effusion. There is no pericardial effusion. <Conclusion> Four chamber enlargement. Severely reduced LV systolic function. Global hypokinesis as well as septal dyskinesis. Severe mitral regurgitation. Severe tricuspid regurgitation. ICD lead noted in RV.
[2018-09-04] MEDS: SACUBITRIL 24mg/VALSARTAN 26mg tab PO SCH ×2 (10:37→17:25)
[2018-09-04] MEDS: Metoprolol Succinate 25 mg XL Tab PO SCH (10:38)
--- NOTE | 2018-09-04 11:07 | PN ---
DATE: 09/04/2018 SUBJECTIVE: The patient was seen lying in bed on telemetry. She is feeling better. She denies any dyspnea at rest. Her echocardiogram is pending. The blood pressure remains low at times. Her current medications include amiodarone 100 mg daily, warfarin, DuoNeb inhaler, Ecotrin, Entresto 24/26 mg b.i.d., Lasix, and Toprol XL 12.5 mg daily. PHYSICAL EXAMINATION: GENERAL: She is an elderly woman who appears comfortable at rest. VITAL SIGNS: Blood pressure is 92/66 with a pulse of 74 with a dual-chamber pacing noted, respirations are 14. She is afebrile. HEENT: No JVD. CHEST: Faint rales at the right base. HEART: PMI displaced laterally with soft tones noted. ABDOMEN: Soft, nontender with normoactive bowel sounds. EXTREMITIES: No edema. DIAGNOSTIC DATA: Potassium 4.5, BUN and creatinine are 58 and 1.6. White count 6.6, hemoglobin and hematocrit are 12.2 and 37.8 with a platelet count 200,000. Echocardiogram is pending. Abdominal ultrasound reveals cholelithiasis and renal cysts on the left. IMPRESSION: 1. Decompensated congestive heart failure, nwchd-ey-vgycvjv systolic, clinically improved, likely exacerbated by recent acute bronchitis. 2. Dilated cardiomyopathy. 3. Paroxysmal atrial fibrillation. 4. Renal insufficiency, xpbvm-gb-rhjegod. 5. Elevated transaminases with an AST and ALT of 197 and 205, up from 69 and 72 on admission, possibly due to passive congestion, may also be related to amiodarone utilization. RECOMMENDATIONS: Amiodarone will be placed on hold for now. The rest of medications will continue unchanged. Outpatient followup for transaminases can be planned. Her echocardiogram will be reviewed later today. From a cardiac standpoint, she appears stable for discharge later today with close outpatient followup. Gene Pichardo MD
[2018-09-04] MEDS: Menthol/Methyl Salicylate Ointment(1 oz) TOP PRN ×2 (17:28→21:38)
--- NOTE | 2018-09-04 21:42 | CON ---
DATE: 09/04/2018 HISTORY OF PRESENT ILLNESS: I saw Mrs. Cox this morning. She is a 77-year-old white female with past medical history of cardiomyopathy with AICD, coronary artery disease, pulmonary hypertension, and atrial fibrillation, who presented with severe shortness of breath. The patient also noted some upper back pain radiating across her shoulder and also with water retention. She denied any nausea or vomiting, dysphagia, acute retrosternal chest pain, diarrhea or rectal bleeding. The patient also denied any severe problems with the liver in the past. PAST MEDICAL HISTORY: Does not include any problems with gallbladder disease, peptic ulcer, colitis, or GI bleeding. PHYSICAL EXAMINATION GENERAL: At bedside this morning, the patient is awake and alert and pleasant. She indicates her shortness of breath has resolved somewhat, but she is still on medication, is still retaining somewhat, some small degree of fluid retention. She denied any nausea, vomiting, abdominal pain, change in urine color, or rectal bleeding. VITAL SIGNS: I reviewed this patient's vital signs. HEENT: Noncontributory. LUNGS: Crackles at the bases bilaterally up to about one quarter of the apex. HEART: Irregular rhythm. ABDOMEN: Soft. No tenderness elicited. EXTREMITIES: Significant for slight degree of fluid retention at the ankles. LABORATORY DATA: Significant for BNP of 24,000 on date of admission. Transaminases on date of admission is 69/72 and alk phos 191. BUN and creatinine ratio of 43/1.5 at the time of admission. Note that over the past 2 days, the transaminases have increased to current AST and ALT ratio of 197/205 with alk phos of 167. Bilirubin is within normal limits. Her INR is in the range of 2.96. H and H was measured 12 and 37 with platelet count of 200. Her serology is within normal limits. Review of the abdominal ultrasound indicates patent portal vein with unremarkable echogenicity of the liver parenchyma. No bile duct dilatation. She does have evidence of cholelithiasis, but no gallbladder wall thickening, pericholecystic fluid. Bile duct is within normal limits. An echocardiogram was performed this morning, which is significant for 4-chamber enlargement with severely reduced left ventricular systolic function. She does have a global hypokinesis, severe mitral and tricuspid regurg. ASSESSMENT AND PLAN: This is a 77-year-old white female, admitted with severe shortness of breath secondary to a dilated cardiomyopathy. The patient has a severe valvular dysfunction, and presented with an elevated BNP. Based on the patient's clinical history as well as evaluation of laboratory data, most likely there is a significant degree of hepatic congestion due to some impaired ejection fraction. An LDH was ordered this morning. I do not feel that this is related to a biliary etiology. It will be best to monitor her LFT's over the next couple of days as her cardiac status starts to improve. Asif Coleman DO, PhD ENEDINA
[2018-09-05 05:37] VITALS: RESP 20; O2SAT 95
[2018-09-05 06:24] LABS: BASO # 0.04 K/mm3 (0.0-2.0); BASO % 0.7 % (0.0-3.0); EOS # 0.2 (0.0-0.7); HEMOGLOBIN 12.1 g/dL (12.0-16.0); LYMPH # 0.8 (1.2-3.4); LYMPH % 15.7 % (22.0-35.0); MEAN CELL VOLUME 91.1 fl (80.0-105.0); MEAN CORPUSCULAR HEMOGLOBIN 29.2 pg (25.0-35.0); MONO # 0.5 (0.1-0.6); RBC 4.15 10^6/uL (3.5-6.1); RED CELL DISTRIBUTION WIDTH 14.7 % (11.5-14.5); WHITE BLOOD COUNT 5.4 10^3/uL (4.5-11.0)
[2018-09-05 06:28] LABS: INR 2.83
[2018-09-05 07:06] LABS: ALB/GLOB RATIO 1.2 (1.1-1.8); ALBUMIN 3.7 g/dL (3.0-4.8); CALCIUM 9.3 mg/dL (8.4-10.5)
--- NOTE | 2018-09-05 08:34 | CP.PCM.CON ---
Past Patient History - Infectious Disease Hx of Infectious Diseases: None - Tetanus Immunizations Tetanus Immunization: Unknown - Past Social History Smoking Status: Never Smoked - CARDIAC Hx Cardiac Disorders: Yes (CAD, diliated cardiomyopathy, paroxysmal A-fib,) Hx Congestive Heart Failure: Yes Hx Hypertension: Yes - PULMONARY Hx Respiratory Disorders: Yes Hx Pneumonia: No Hx Sleep Apnea: Yes Other/Comment: carmelina 15 yrs ago not on home bipap, no sleep apnea at present time as per pt - NEUROLOGICAL Hx Neurological Disorder: Yes Hx Migraine: Yes - HEENT Hx HEENT Problems: No - RENAL Hx Chronic Kidney Disease: No - ENDOCRINE/METABOLIC Hx Endocrine Disorders: No - HEMATOLOGICAL/ONCOLOGICAL Hx Blood Disorders: Yes Hx Anemia: Yes - INTEGUMENTARY Hx Dermatological Problems: No - MUSCULOSKELETAL/RHEUMATOLOGICAL Hx Musculoskeletal Disorders: No Hx Falls: No - GASTROINTESTINAL Hx Gastrointestinal Disorders: No - GENITOURINARY/GYNECOLOGICAL Hx Genitourinary Disorders: No Other/Comment: Hysterectomy - PSYCHIATRIC Hx Psychophysiologic Disorder: No - SURGICAL HISTORY Hx Cardiac Catheterization: Yes (No stents) Hx Cholecystectomy: No (pt denies) Hx Coronary Stent: No Hx Hysterectomy: Yes (age 38) - ANESTHESIA Hx Anesthesia: Yes Hx Anesthesia Reactions: No Hx Malignant Hyperthermia: No Meds Allergies/Adverse Reactions: Allergies Allergy/AdvReac Type Severity Reaction Status Date / Time heparin Allergy SWELLING Verified 09/02/18 08:42 iodine Allergy RASH Verified 09/02/18 08:42 levofloxacin Allergy RASH Verified 09/02/18 08:42 sulfur [From Sulfur-8] Allergy RASH Verified 09/02/18 08:42 - Medications Medications: Current Medications Albuterol/Ipratropium (Duoneb 3 Mg/0.5 Mg (3 Ml) Ud) 3 ml IH [id number] PRN PRN Reason: Shortness of Breath Amiodarone HCl (Cordarone) 100 mg PO DAILY [facility] Last Admin: 09/03/18 09:47 Dose: 100 mg Aspirin (Ecotrin) 81 mg PO DAILY [facility] Last Admin: 09/04/18 10:38 Dose: 81 mg Camphor/Menthol (Bengay) 0 gm TOP QID PRN PRN Reason: Muscle spasm Last Admin: 09/04/18 21:38 Dose: 1 applic Furosemide (Lasix) 40 mg IVP BID [facility] Last Admin: 09/04/18 17:27 Dose: 40 mg Metoprolol Succinate (Toprol Xl) 12.5 mg PO BRK [facility] Last Admin: 09/04/18 10:38 Dose: 12.5 mg Sacubitril/Valsartan (Entresto 24 Mg-26 Mg Tablet) 1 each PO BID [facility] Last Admin: 09/04/18 17:25 Dose: 1 each Warfarin Sodium (Coumadin) 3 mg PO 1800 ANNE; Protocol Last Admin: 09/03/18 17:58 Dose: 3 mg Results - Vital Signs Recent Vital Signs: Last Vital Signs Temp 98 F 09/05/18 05:36 Pulse 70 09/05/18 05:36 Resp 20 09/05/18 05:36 BP 97/63 L 09/05/18 05:36 Pulse Ox 95 09/05/18 05:36 - Labs Result Diagrams: 09/05/18 05:30 09/05/18 05:30 Labs: Laboratory Results - last 24 hr 09/04/18 09/04/18 09/05/18 07:00 13:00 05:30 WBC 5.4 RBC 4.15 Hgb 12.1 Hct 37.8 MCV 91.1 MCH 29.2 MCHC 32.0 RDW 14.7 H Plt Count 201 MPV 10.0 Neut % (Auto) 71.6 H Lymph % (Auto) 15.7 L [place] % (Auto) 9.0 H Eos % (Auto) 3.0 Baso % (Auto) 0.7 Lymph # (Auto) 0.8 L [place] # (Auto) 0.5 Eos # (Auto) 0.2 Baso # (Auto) 0.04 Absolute Neuts (auto) 3.84 PT INR Sodium Potassium Chloride Carbon Dioxide Anion Gap BUN Creatinine Est GFR ( Amer) Est GFR (Non-Af Amer) Random Glucose Calcium Total Bilirubin AST ALT Alkaline Phosphatase Lactate Dehydrogenase 1097 H Total Protein Albumin Globulin Albumin/Globulin Ratio Acetaminophen < 10.0 L 09/05/18 09/05/18 05:30 05:30 WBC RBC Hgb Hct MCV MCH MCHC RDW Plt Count MPV Neut % (Auto) Lymph % (Auto) [place] % (Auto) Eos % (Auto) Baso % (Auto) Lymph # (Auto) [place] # (Auto) Eos # (Auto) Baso # (Auto) Absolute Neuts (auto) PT 32.0 H INR 2.83 Sodium 138 Potassium 4.0 Chloride 103 Carbon Dioxide 24 Anion Gap 15 BUN 59 H Creatinine 1.5 H Est GFR ( Amer) 41 Est GFR (Non-Af Amer) 34 Random Glucose 100 Calcium 9.3 Total Bilirubin 1.1 AST 172 H ALT 227 H Alkaline Phosphatase 174 H Lactate Dehydrogenase Total Protein 6.8 Albumin 3.7 Globulin 3.1 Albumin/Globulin Ratio 1.2 Acetaminophen
[2018-09-05] MEDS: Metoprolol Succinate 25 mg XL Tab PO SCH (08:40)
[2018-09-05] MEDS: SACUBITRIL 24mg/VALSARTAN 26mg tab PO SCH (09:49)
[2018-09-05 12:46] VITALS: BP 87/58; PULSE 71; TEMP 97.6
--- NOTE | 2018-09-05 13:02 | PN ---
DATE: 09/05/2018 SUBJECTIVE: The patient is seen lying in bed on telemetry. She is feeling comfortable at the present time. She ambulated on the floor yesterday with no difficulty. She was seen by Dr. Coleman of the GI service who felt that her transaminase elevation is likely secondary to passive congestion. As a precaution, her amiodarone has been placed on hold. Current medications include warfarin, DuoNeb inhaler, Ecotrin, Entresto 24/26 mg b.i.d., Lasix 40 mg IV b.i.d., Toprol 12.5 mg daily. PHYSICAL EXAMINATION: GENERAL: She is an elderly woman who is comfortable at the present time. VITAL SIGNS: Blood pressure 96/60 with pulse of 70 with dual-chamber pacing, respirations are 14. She is afebrile. HEENT: No JVD. CHEST: Few scattered rhonchi. No rales heard. HEART: PMI displaced laterally with a soft systolic murmur at the apex and soft tones present. ABDOMEN: Soft, nontender with normoactive bowel sounds. EXTREMITIES: No edema. DIAGNOSTIC DATA: Potassium 4 and BUN and creatinine of 59 and 1.5. White count 5.4, hemoglobin and hematocrit 12.1 and 37.8 with platelet count of 201,000. INR is 2.83. AST and ALT 172 and 227 with LDH of 174. IMPRESSION: 1. Decompensated congestive heart failure, [id number], systolic and now clinically improved. 2. Recent bronchitis. 3. Severe dilated cardiomyopathy. 4. Paroxysmal atrial fibrillation. 5. Status post implantable cardioverter defibrillator implant. 6. Renal insufficiency, stable. 7. Elevated transaminases appear to be more likely secondary to passive congestion. RECOMMENDATIONS: Her current medications will continue for now. She can resume her oral Lasix schedule, amiodarone will remain on hold, and her transaminases will be checked as an outpatient prior to resuming therapy. From a cardiac standpoint, she appears stable for discharge home at this time. Outpatient followup has been arranged. Gene Pichardo MD EN[facility]
--- NOTE | 2018-09-05 17:07 | CP.PCM.DIS ---
<HongOtto - Last Filed: 09/05/18 17:01> Provider - Provider Date of Admission: 09/02/18 10:20 Attending physician: Queta Noonan MD Consults: 09/02/18 10:55 Cardiology Consult Routine Comment: Consulting Provider: Gene Pichardo Consulting Physician: Gene Pichardo Reason for Consult: CHF exacerbation 09/02/18 13:53 Transition In Care/Readmission Reduction Routine Comment: Physician Instructions: Reason For Exam: CHF EXC 09/04/18 09:20 Physician Consult Routine Comment: Consulting Provider: Nuris August V Consulting Physician: Nuris August V Reason for Consult: Worsening Transaminitis 09/04/18 16:42 Discharge Planning [Case Management Referral] Routine Comment: Physician Instructions: Reason For Exam: Reason for Referral: [facility] Eval Time Spent in preparation of Discharge (in minutes): 35 Hospital Course - Lab Results Lab Results: Most Recent Lab Values WBC 5.4 10^3/uL (4.5-11.0) 09/05/18 05:30 RBC 4.15 10^6/uL (3.5-6.1) 09/05/18 05:30 Hgb 12.1 g/dL (12.0-16.0) 09/05/18 05:30 Hct 37.8 % (36.0-48.0) 09/05/18 05:30 MCV 91.1 fl (80.0-105.0) 09/05/18 05:30 MCH 29.2 pg (25.0-35.0) 09/05/18 05:30 MCHC 32.0 g/dl (31.0-37.0) 09/05/18 05:30 RDW 14.7 % (11.5-14.5) H 09/05/18 05:30 Plt Count 201 10^3/uL (120.0-450.0) 09/05/18 05:30 MPV 10.0 fl (7.0-11.0) 09/05/18 05:30 Neut % (Auto) 71.6 % (50.0-68.0) H 09/05/18 05:30 Lymph % (Auto) 15.7 % (22.0-35.0) L 09/05/18 05:30 Geary % (Auto) 9.0 % (1.0-6.0) H 09/05/18 05:30 Eos % (Auto) 3.0 % (1.5-5.0) 09/05/18 05:30 Baso % (Auto) 0.7 % (0.0-3.0) 09/05/18 05:30 Lymph # (Auto) 0.8 (1.2-3.4) L 09/05/18 05:30 Geary # (Auto) 0.5 (0.1-0.6) 09/05/18 05:30 Eos # (Auto) 0.2 (0.0-0.7) 09/05/18 05:30 Baso # (Auto) 0.04 K/mm3 (0.0-2.0) 09/05/18 05:30 Absolute Neuts (auto) 3.84 (1.4-6.5) 09/05/18 05:30 PT 32.0 SECONDS (9.4-12.5) H 09/05/18 05:30 INR 2.83 09/05/18 05:30 APTT 36.3 Seconds (26.9-38.3) 09/02/18 09:17 Sodium 138 mmol/L (132-148) 09/05/18 05:30 Potassium 4.0 mmol/L (3.6-5.0) 09/05/18 05:30 Chloride 103 mmol/L (98-107) 09/05/18 05:30 Carbon Dioxide 24 mmol/L (21-33) 09/05/18 05:30 Anion Gap 15 (10-20) 09/05/18 05:30 BUN 59 mg/dL (7-21) H 09/05/18 05:30 Creatinine 1.5 mg/dl (0.7-1.2) H 09/05/18 05:30 Est GFR ( Amer) 41 09/05/18 05:30 Est GFR (Non-Af Amer) 34 09/05/18 05:30 Random Glucose 100 mg/dL (70-110) 09/05/18 05:30 Calcium 9.3 mg/dL (8.4-10.5) 09/05/18 05:30 Magnesium 2.4 mg/dL (1.7-2.2) H 09/03/18 06:30 Total Bilirubin 1.1 mg/dL (0.2-1.3) 09/05/18 05:30 AST 172 U/L (14-36) H 09/05/18 05:30 ALT 227 U/L (7-56) H 09/05/18 05:30 Alkaline Phosphatase 174 U/L (38-126) H 09/05/18 05:30 Lactate Dehydrogenase 1097 U/L (333-699) H 09/04/18 07:00 Total Creatine Kinase 102 U/L (35-230) 09/02/18 09:17 Troponin I 0.04 ng/mL 09/02/18 14:45 NT-Pro-B Natriuret Pep 09622 pg/mL (0-450) H 09/02/18 09:17 Total Protein 6.8 g/dL (5.8-8.3) 09/05/18 05:30 Albumin 3.7 g/dL (3.0-4.8) 09/05/18 05:30 Globulin 3.1 gm/dL 09/05/18 05:30 Albumin/Globulin Ratio 1.2 (1.1-1.8) 09/05/18 05:30 Triglycerides 93 mg/dL (35-160) 09/03/18 06:30 Cholesterol 147 mg/dL (130-200) 09/03/18 06:30 LDL Cholesterol Direct 76 mg/dL (0-129) 09/03/18 06:30 HDL Cholesterol 43 mg/dL (29-60) 09/03/18 06:30 Urine Color Yellow (YELLOW) 09/02/18 12:24 Urine Appearance Clear (CLEAR) 09/02/18 12:24 Urine pH 6.5 (4.7-8.0) 09/02/18 12:24 Ur Specific C[place] 1.015 (1.005-1.035) 09/02/18 12:24 Urine Protein Negative mg/dL (<30 mg/dL) 09/02/18 12:24 Urine Glucose (UA) Negative mg/dL (NEGATIVE) 09/02/18 12:24 Urine Ketones Negative mg/dL (NEGATIVE) 09/02/18 12:24 Urine Blood Negative (NEGATIVE) 09/02/18 12:24 Urine Nitrate Negative (NEGATIVE) 09/02/18 12:24 Urine Bilirubin Negative (NEGATIVE) 09/02/18 12:24 Urine Urobilinogen 0.2 E.U./dL (<1 E.U./dL) 09/02/18 12:24 Ur Leukocyte Esterase Negative Jaime/uL (NEGATIVE) 09/02/18 12:24 Acetaminophen < 10.0 ug/ml (10.0-20.0) L 09/04/18 13:00 Hepatitis A IgM Ab Negative (NEGATIVE) 09/03/18 11:00 Hep Bs Antigen Negative (NEGATIVE) 09/03/18 11:00 Hep B Core IgM Ab Negative (NEGATIVE) 09/03/18 11:00 Hepatitis C Antibody Negative (NEGATIVE) 09/03/18 11:00 - Hospital Course Hospital Course: Otto Pitts, PGY1 Discharge Summary for Dr. Noonan Patient is a 77 year old female with a PMHx of systolic CHF (last known EF 20% from 2014), dilated cardiomyopathy, w/ AICD (last check by Dr Koo in 2018), non-obstructive CAD with no stents, pulmonary HTN, CODY (not on home cpap/bipap), paroxysmal atrial fibrillation on home warfarin, HTN who presented to the ED for worsening shortness of breath x3 days duration. Patient was admitted for acute on chronic CHF exacerbation in the setting of CHF-rEF. She presented with prBNP 24,500. Her flat surfacer jewel, Dr. Pichardo was placed on consult. Echo was ordered by cardiology. Echo showed EF 10%. However, her CHF exacerbation improved with administration of lasix 40mg IVP BID. She has been on milrinone for the past 3 years which was recently discontinued. She also had worsening liver enzymes during hospital course, uptrending to 172/227. Abdominal US only showed cholelithiasis but no acute cholecystitis. GI (Dr. Coleman) was consulted for worsening transaminitis. The worsening liver function is likely due to poor ejection fraction causing hepatic congestion. Other possibility includes her home med amiodarone, which is held until she goes back to visit her flat surfacer jewel outpatient. Patient is also asymptomatic on GI exam. Upon reviewing all labs, imaging, and vitals, patient is hemodynamically stable for discharge. She will follow up with outpatient PMD and flat surfacer jewel. Discharge Exam - Head Exam Head Exam: ATRAUMATIC, NORMAL INSPECTION, NORMOCEPHALIC - Eye Exam Eye Exam: EOMI, Normal appearance Pupil Exam: NORMAL ACCOMODATION - ENT Exam ENT Exam: Mucous Membranes Moist - Respiratory Exam Respiratory Exam: Clear to PA & Lateral. absent: Accessory Muscle Use, Chest Wall Tenderness, Rales, Rhonchi, Wheezes, Respiratory Distress - Cardiovascular Exam Cardiovascular Exam: RRR, +S1, +S2 - GI/Abdominal Exam GI & Abdominal Exam: Normal Bowel Sounds - Extremities Exam Extremities exam: normal capillary refill, normal inspection, pedal pulses present - Back Exam Back exam: NORMAL INSPECTION - Neurological Exam Neurological exam: Alert, Oriented x3 - Psychiatric Exam Psychiatric exam: Normal Affect, Normal Mood - Skin Skin Exam: Dry, Intact, Normal Color, Warm Discharge Plan - Follow Up Plan Condition: FAIR Disposition: HOME/ ROUTINE Instructions: Heart Failure and Atrial Fibrillation, Liver Function Test, Transaminase Tests, Heart Failure (DC) Additional Instructions: 1. Please follow up with your Primary Care Doctor (Dr. Fletcher) within 3-4 days of discharge from hospital. - Inform your Primary Care Doctor that you had elevated liver enzymes (AST/ALT 172/227) during your stay in the hospital. 2. Please follow up with your Leather Sprayer (Dr. Pichardo) within 1 week of discharge from hospital. 5. Please do not take your amiodarone medication at this time. Discuss with your Primary Care Doctor and Leather Sprayer upon discharge when to resume this medication. 3. Do not take your Warfarin medication today. You may resume it starting tomorrow, 09/06. Check INR this or Monday. 4. Please resume all other home medications as prescribed. 6. Please return to the nearest Emergency Department if your symptoms reoccur or worsen. <Queta Noonan - Last Filed: 09/05/18 17:54> Provider - Provider Date of Admission: 09/02/18 10:20 Attending physician: Queta Noonan MD Consults: 09/02/18 10:55 Cardiology Consult Routine Comment: Consulting Provider: Gene Pichardo Consulting Physician: Gene Pichardo Reason for Consult: CHF exacerbation 09/02/18 13:53 Transition In Care/Readmission Reduction Routine Comment: Physician Instructions: Reason For Exam: CHF EXC 09/04/18 09:20 Physician Consult Routine Comment: Consulting Provider: Nuris August V Consulting Physician: Nuris August V Reason for Consult: Worsening Transaminitis 09/04/18 16:42 Discharge Planning [Case Management Referral] Routine Comment: Physician Instructions: Reason For Exam: Reason for Referral: [place] Hospital Course - Lab Results Lab Results: Most Recent Lab Values WBC 5.4 10^3/uL (4.5-11.0) 09/05/18 05:30 RBC 4.15 10^6/uL (3.5-6.1) 09/05/18 05:30 Hgb 12.1 g/dL (12.0-16.0) 09/05/18 05:30 Hct 37.8 % (36.0-48.0) 09/05/18 05:30 MCV 91.1 fl (80.0-105.0) 09/05/18 05:30 MCH 29.2 pg (25.0-35.0) 09/05/18 05:30 MCHC 32.0 g/dl (31.0-37.0) 09/05/18 05:30 RDW 14.7 % (11.5-14.5) H 09/05/18 05:30 Plt Count 201 10^3/uL (120.0-450.0) 09/05/18 05:30 MPV 10.0 fl (7.0-11.0) 09/05/18 05:30 Neut % (Auto) 71.6 % (50.0-68.0) H 09/05/18 05:30 Lymph % (Auto) 15.7 % (22.0-35.0) L 09/05/18 05:30 Geary % (Auto) 9.0 % (1.0-6.0) H 09/05/18 05:30 Eos % (Auto) 3.0 % (1.5-5.0) 09/05/18 05:30 Baso % (Auto) 0.7 % (0.0-3.0) 09/05/18 05:30 Lymph # (Auto) 0.8 (1.2-3.4) L 09/05/18 05:30 Geary # (Auto) 0.5 (0.1-0.6) 09/05/18 05:30 Eos # (Auto) 0.2 (0.0-0.7) 09/05/18 05:30 Baso # (Auto) 0.04 K/mm3 (0.0-2.0) 09/05/18 05:30 Absolute Neuts (auto) 3.84 (1.4-6.5) 09/05/18 05:30 PT 32.0 SECONDS (9.4-12.5) H 09/05/18 05:30 INR 2.83 09/05/18 05:30 APTT 36.3 Seconds (26.9-38.3) 09/02/18 09:17 Sodium 138 mmol/L (132-148) 09/05/18 05:30 Potassium 4.0 mmol/L (3.6-5.0) 09/05/18 05:30 Chloride 103 mmol/L (98-107) 09/05/18 05:30 Carbon Dioxide 24 mmol/L (21-33) 09/05/18 05:30 Anion Gap 15 (10-20) 09/05/18 05:30 BUN 59 mg/dL (7-21) H 09/05/18 05:30 Creatinine 1.5 mg/dl (0.7-1.2) H 09/05/18 05:30 Est GFR ( Amer) 41 09/05/18 05:30 Est GFR (Non-Af Amer) 34 09/05/18 05:30 Random Glucose 100 mg/dL (70-110) 09/05/18 05:30 Calcium 9.3 mg/dL (8.4-10.5) 09/05/18 05:30 Magnesium 2.4 mg/dL (1.7-2.2) H 09/03/18 06:30 Total Bilirubin 1.1 mg/dL (0.2-1.3) 09/05/18 05:30 AST 172 U/L (14-36) H 09/05/18 05:30 ALT 227 U/L (7-56) H 09/05/18 05:30 Alkaline Phosphatase 174 U/L (38-126) H 09/05/18 05:30 Lactate Dehydrogenase 1097 U/L (333-699) H 09/04/18 07:00 Total Creatine Kinase 102 U/L (35-230) 09/02/18 09:17 Troponin I 0.04 ng/mL 09/02/18 14:45 NT-Pro-B Natriuret Pep 57332 pg/mL (0-450) H 09/02/18 09:17 Total Protein 6.8 g/dL (5.8-8.3) 09/05/18 05:30 Albumin 3.7 g/dL (3.0-4.8) 09/05/18 05:30 Globulin 3.1 gm/dL 09/05/18 05:30 Albumin/Globulin Ratio 1.2 (1.1-1.8) 09/05/18 05:30 Triglycerides 93 mg/dL (35-160) 09/03/18 06:30 Cholesterol 147 mg/dL (130-200) 09/03/18 06:30 LDL Cholesterol Direct 76 mg/dL (0-129) 09/03/18 06:30 HDL Cholesterol 43 mg/dL (29-60) 09/03/18 06:30 Urine Color Yellow (YELLOW) 09/02/18 12:24 Urine Appearance Clear (CLEAR) 09/02/18 12:24 Urine pH 6.5 (4.7-8.0) 09/02/18 12:24 Ur Specific [place] 1.015 (1.005-1.035) 09/02/18 12:24 Urine Protein Negative mg/dL (<30 mg/dL) 09/02/18 12:24 Urine Glucose (UA) Negative mg/dL (NEGATIVE) 09/02/18 12:24 Urine Ketones Negative mg/dL (NEGATIVE) 09/02/18 12:24 Urine Blood Negative (NEGATIVE) 09/02/18 12:24 Urine Nitrate Negative (NEGATIVE) 09/02/18 12:24 Urine Bilirubin Negative (NEGATIVE) 09/02/18 12:24 Urine Urobilinogen 0.2 E.U./dL (<1 E.U./dL) 09/02/18 12:24 Ur Leukocyte Esterase Negative Jaime/uL (NEGATIVE) 09/02/18 12:24 Acetaminophen < 10.0 ug/ml (10.0-20.0) L 09/04/18 13:00 Hepatitis A IgM Ab Negative (NEGATIVE) 09/03/18 11:00 Hep Bs Antigen Negative (NEGATIVE) 09/03/18 11:00 Hep B Core IgM Ab Negative (NEGATIVE) 09/03/18 11:00 Hepatitis C Antibody Negative (NEGATIVE) 09/03/18 11:00 Attending/Attestation - Attestation I have personally seen and examined this patient.: Yes I have fully participated in the care of the patient.: Yes I have reviewed all pertinent clinical information, including history, physical exam and plan: Yes Notes (Text): 09/05/18 17:49 77 year old female with past medical history of systolic CHF (EF 20%), dilated cardiomyopathy s/p AICD, formerly on milrinone which was recently discontinued, CAD, paroxysmal afib on coumadin and hypertension who presented with complaint of shortness of breath secondary to acute on chronic systolic CHF exacerbation. Symptoms improved with iv lasix bid. She was being followed by cardiology who switched lasix to po today. CKD is stable. She was however noted to have transaminitis possibly secondary to medications (amiodarone and tylenol) which were held. GI evaluation was appreciated. LFTs are beginning to improve. US showed cholelithiasis without cholecystitis. Patient is discharged home to follow up with pmd. Follow up with cardiology and GI. Monitor LFTs as outpatient. Hold amiodarone for now unless resumed by pmd/flat surfacer jewel. Avoid tylenol as LFTs are elevated. Hold coumadin tonight and resume tomorrow. Monitor INR as outpatient. Queta Noonan MD Hospitalist.
== END 2018-09-05 15:20 | disposition home or self-care (01) | DRG 291 ==
LOC: ED 08:37 → ERH 10:20 → 2RNO 12:27
PROVIDERS: ADMIT Internal Medicine; ATTEND Internal Medicine
DX: I13.0 Hypertensive heart and chronic kidney disease with heart failure and stage 1 through stage 4 chronic kidney disease, or unspecified chronic kidney disease (principal); I50.23 Acute on chronic systolic (congestive) heart failure; N18.9 Chronic kidney disease, unspecified; I42.0 Dilated cardiomyopathy; I25.10 Atherosclerotic heart disease of native coronary artery without angina pectoris; I27.20 Pulmonary hypertension, unspecified; I48.0 Paroxysmal atrial fibrillation; J20.9 Acute bronchitis, unspecified; K76.1 Chronic passive congestion of liver; K80.20 Calculus of gallbladder without cholecystitis without obstruction; Z79.899 Other long term (current) drug therapy; Z79.82 Long term (current) use of aspirin; Z79.01 Long term (current) use of anticoagulants; Z95.810 Presence of automatic (implantable) cardiac defibrillator; Z90.710 Acquired absence of both cervix and uterus